=== PATIENT | male | born 1960 | race Caucasian/White ===

== ENCOUNTER 2018-06-22 22:23 | Inpatient (IN) | payer BC, MEDICAID ==
[2018-06-22] MEDS ORDERED: SODIUM CHLORIDE 0.9% 1,000 ML IV STA (23:05)
[2018-06-22 23:40] LABS: HCT 49.3 % (39.0-53.0); HGB 16.7 gm/dL (13.0-17.5); MCH 31.4 pg (25.0-35.0); MCHC 33.9 g/dL (31.0-37.0); MCV 92.6 fL (80.0-100.0); Mean Platelet Volume 8.3; RBC 5.32 m/uL (4.30-5.90); WBC 15.1 k/uL (3.8-10.6)
[2018-06-22 23:52] LABS: ALT 186 U/L (21-72); AST 158 U/L (17-59); Albumin 4.5 g/dL (3.5-5.0); Alkaline Phosphatase 71 U/L (38-126); Amylase 47 U/L (30-110); Anion Gap 12 mmol/L; Blood Urea Nitrogen 18 mg/dL (9-20); C Reactive Protein 21.1 mg/L (<10.0); Calcium 9.2 mg/dL (8.4-10.2); Carbon Dioxide 18 mmol/L (22-30); Chloride 109 mmol/L (98-107); Glucose 103 mg/dL (74-99); Lipase 68 U/L (23-300); Potassium 4.6 mmol/L (3.5-5.1); Sodium 139 mmol/L (137-145); Total Bilirubin 0.8 mg/dL (0.2-1.3); Total Protein 6.6 g/dL (6.3-8.2)
[2018-06-23 00:16] LABS: Appearance,Urine Clear (Clear); Bacteria,Urine Rare /hpf; Bilirubin,Urine Negative (Negative); Blood,Urine Small (Negative); Color,Urine Yellow; Glucose,Urine (UA) Negative (Negative); Ketones,Urine Negative (Negative); Leukocyte Esterase,Urine Negative (Negative); Mucus,Urine Few /hpf; Nitrite,Urine Negative (Negative); Protein,Urine Trace (Negative); RBC,Urine 5 /hpf (0-5); Specific Gravity,Urine 1.029 (1.001-1.035); Squamous Epithelial Cell,Urine <1 /hpf (0-4); Urobilinogen,Urine <2.0 mg/dL (<2.0); WBC,Urine 2 /hpf (0-5)
[2018-06-23 00:30] LABS: Band Neutrophils % 13 %; Lymphocytes # (M) 10.57 k/uL (1.0-4.8); Monocytes # (M) 0.15 k/uL (0-1.0); Neutrophils % (M) 16 %; Nucleated Red Blood Cells 0 /100 WBC (0-0); Total Cells Counted 200
[2018-06-23 00:31] LABS: Platelet Count 80 k/uL (150-450)
--- NOTE | 2018-06-23 00:46 | CT ---
EXAMINATION TYPE: CT abdomen pelvis w con DATE OF EXAM: 06/23/2018 COMPARISON: 07/10/2010 HISTORY: pain CT DLP: 1666.90 mGycm Automated exposure control for dose reduction was used. TECHNIQUE: Helical acquisition of images was performed from the lung bases through the pelvis. CONTRAST: Performed without Oral Contrast and with IV Contrast, patient injected with 100 mL of Isovue 300. FINDINGS: Lung bases are clear. There is no pleural effusion. Heart size is normal. Spleen is large and measures 13 cm. Liver shows no focal defect. Pancreas appears normal. Gallbladder is contracted. Bile ducts are not dilated. There is no adrenal mass. There are bilateral renal parapelvic cysts. Ureters are not dilated. There is no hydronephrosis. There is no retroperitoneal adenopathy. There is no ascites. Bladder distends s moothly. There is no free fluid in the pelvis. There is no evidence of a thickened appendix. Appendix appears small and normal. I see no intestinal wall thickening. There are no dilated loops. There is an 8 mm calculus in the lateral left kidney. I see no bony destructive process. Lumbar spine is intac t. IMPRESSION: NONOBSTRUCTING LEFT RENAL CALCULUS. LARGE RENAL PARAPELVIC CYSTS. NORMAL APPENDIX. MILD SPLENOMEGALY. THERE IS OVERALL NO ADVERSE CHANGE COMPARED TO OLD CT SCAN.
[2018-06-23] MEDS ORDERED: cefTRIAXone IN SWFI 1,000 MG/10 ML SYRINGE IVP STA (01:18)
[2018-06-23] MEDS ORDERED: ONDANSETRON 4 MG/2 ML VIAL IVP STA (01:52)
[2018-06-23] MEDS ORDERED: MORPHINE SULFATE 4 MG/ML SYRINGE IVP STA (01:53)
[2018-06-23] MEDS ORDERED: VANCOMYCIN IV PER PHARMACY 1 EACH MISC MISCELLANE PRN (01:56)
[2018-06-23] MEDS ORDERED: ACYCLOVIR SODIUM 1,000 MG in SODIUM CHLORIDE 0.9% 250 ML IV ONE (02:00)
[2018-06-23] MEDS ORDERED: NALOXONE 0.4 MG/ML 1 ML VIAL IV PRN (02:01)
[2018-06-23] MEDS ORDERED: MORPHINE SULFATE 4 MG/ML SYRINGE IV PRN (02:01)
[2018-06-23] MEDS ORDERED: ONDANSETRON 4 MG/2 ML VIAL IVP PRN (02:01)
--- NOTE | 2018-06-23 02:05 | ED ---
General Adult HPI - General Source: patient, RN notes reviewed Mode of arrival: wheelchair Limitations: no limitations <Marcelino Walker - Last Filed: 06/23/18 02:31> <Hal Corley - Last Filed: 06/23/18 06:22> - General Chief complaint: Abdominal Pain Stated complaint: fever/abdominal pain/skin breakout Time Seen by Provider: 06/22/18 22:53 - History of Present Illness Initial comments: 57-year-old male presents to the emergency department for a chief complaint of rash 3 days. Patient states he noticed the rash occurring on Saturday on his scalp. Patient states it is slightly painful. Patient states he was seen at a clinic the next day when it also appeared to go on his face. At that time he was given an IM injection of steroids. Patient states that today he went to another clinic because the rash spread to his chest. At that clinic he was given valacyclovir which she has been taking. Patient has had 2 doses of 1 g. Patient states his had shingles about 3 weeks ago. Patient denies ever having chickenpox. Patient admits to pain in the vesicles on the scalp but denies pain on the chest. Patient denies pruritus of the lesions. Patient states he did have a temperature today up to 101. Patient does have a history of CLL. Patient was diagnosed in 2006. Patient has received any treatment for this and is being monitored. Patient also admits to epigastric abdominal pain. Patient states the pain is intermittent and comes and goes. Patient denies nausea or vomiting. Patient states bowel movements have been normal.No surgical history the patient. Patient has no other complaints at this time including shortness of breath, chest pain, abdominal pain, nausea or vomiting, headache, or visual changes. (Marcelino Walker) - Related Data Home Medications Medication Instructions Recorded Confirmed Hydrocortisone Cream 1 applic TOPICAL BID 06/22/18 06/23/18 [Hydrocortisone 2.5% Cream] Lisinopril [Zestril] 5 mg PO DAILY 06/22/18 06/23/18 methylPREDNISolone Dose Pack 4 mg PO DIRECTED 06/22/18 06/23/18 [Medrol Dose Pack] valACYclovir HCL [Valacyclovir] 1,000 mg PO Q8HR 06/22/18 06/23/18 Allergies Allergy/AdvReac Type Severity Reaction Status Date / Time Sulfa (Sulfonamide Allergy Rash/Hives Verified 06/22/18 22:44 Antibiotics) acetaminophen [From Tylenol] AdvReac Nausea & Verified 06/22/18 22:44 Vomiting Review of Systems ROS Other: All systems not noted in ROS Statement are negative. <Marcelino Walker P - Last Filed: 06/23/18 02:31> ROS Other: All systems not noted in ROS Statement are negative. <WhitannaleeHal jean - Last Filed: 06/23/18 06:22> ROS Statement: Those systems with pertinent positive or pertinent negative responses have been documented in the HPI. Past Medical History Past Medical History: Hypertension Additional Past Medical History / Comment(s): Chronic lymphocytic leukemia History of Any Multi-Drug Resistant Organisms: None Reported Past Surgical History: No Surgical Hx Reported Past Psychological History: No Psychological Hx Reported Smoking Status: Never smoker Past Alcohol Use History: Occasional Past Drug Use History: None Reported <Marcelino Walker P - Last Filed: 06/23/18 02:31> General Exam Limitations: no limitations General appearance: alert, in no apparent distress Head exam: Present: atraumatic, normocephalic, normal inspection Eye exam: Present: normal appearance. Absent: scleral icterus, conjunctival injection ENT exam: Present: normal exam, normal oropharynx, mucous membranes moist, TM's normal bilaterally, normal external ear exam Neck exam: Present: normal inspection, full ROM. Absent: tenderness, meningismus, lymphadenopathy Respiratory exam: Present: normal lung sounds bilaterally. Absent: respiratory distress, wheezes, rales, rhonchi, stridor Cardiovascular Exam: Present: regular rate, normal rhythm, normal heart sounds. Absent: systolic murmur, diastolic murmur, rubs, gallop, clicks GI/Abdominal exam: Present: soft, tenderness (Tenderness over the epigastric area. No right upper quadrant or left upper quadrant tenderness. No lower abdominal tenderness.), normal bowel sounds, other (Negative Mcintyre sign. Negative obturator and psoas signs). Absent: distended, guarding, rebound, rigid Extremities exam: Present: full ROM Neurological exam: Present: alert, oriented X3, CN II-XII intact Psychiatric exam: Present: normal affect, normal mood Skin exam: Present: rash (Patient has a erythematous vesicular rash which is noted to be more prominent on scalp. Scalp is slightly edematous. Rash is also noted on face. Rash is also noted on chest although lesions are more spaced out here when compared to scalp. possible infection of multiple vesicles noted on the scalp. ) <Marcelino Walker P - Last Filed: 06/23/18 02:31> Vital Signs 06/22/18 06/23/18 06/23/18 22:37 00:41 02:05 Temperature 98.3 F 98.5 F Pulse Rate 63 89 49 L Respiratory 22 18 18 Rate Blood Pressure 148/105 147/89 176/86 O2 Sat by Pulse 98 98 100 Oximetry 06/23/18 06/23/18 03:11 03:39 Temperature 98.6 F 97.5 F L Pulse Rate 52 L 63 Respiratory 18 18 Rate Blood Pressure 155/75 153/72 O2 Sat by Pulse 97 99 Oximetry EKG Findings - EKG Comments: EKG Findings:: EKG shows a sinus bradycardia with a ventricular rate of 57, ID interval 150, QRS duration 98, no evidence of ST elevation or depression. No previous EKG for comparison. <Marcelino Walker P - Last Filed: 06/23/18 02:31> Medical Decision Making - Lab Data Result diagrams: 06/22/18 23:21 06/22/18 23:21 <Marcelino Walker - Last Filed: 06/23/18 02:31> - Lab Data Result diagrams: 06/22/18 23:21 06/22/18 23:21 <Hal Corley - Last Filed: 06/23/18 06:22> - Medical Decision Making 57-year-old male presents to the emergency department for a chief complaint of rash 2 days. Patient was seen at 2 different urgent cares and given steroids as well as Valtrex. Patient has had 2 doses of Valtrex. Patient has a history of CLL and his recently had shingles. On exam patient has erythematous ossicles noted most prominently on the scalp. Lesions have also spread to face as well as chest. Vesicles are intact, no drainage from vesicles. No crusting vesicles noted. There is possible signs of overlying infection of multiple vesicles on the scalp including purulent drainage. Patient may have a disseminated herpes zoster as he has never had chickenpox and his was just recently diagnosed as zoster. Patient is also immunocompromised from CLL. Patient does have abdominal pain as well. Pain was greatly improved in the emergency department and patient refused pain medications on presentation. He does have epigastric tenderness. CBC shows a white count of 15. Blood cultures were obtained. Platelet count 80 and lymphocytes 10.57. CMP did show elevated transaminases. CRP 21.1 CT showed left renal calculus with large renal parapelvic cysts. Mild splenomegaly noted. Overall no adverse change compared to old computed tomography scan. Patient will be admitted to the hospital and started on IV Rocephin, Vanco, and acyclovir. ID will be consulted. (Marcelino Walker) Patient with rash which is spreading, initially began over his head has spread to chest and upper extremities. This is vesicular, his recently had episode of shingles. This patient has never had chickenpox for immunization. There is concern for disseminated herpes zoster. Patient admitted on IV antibiotics for secondary infection and IV antivirals. Infectious disease placed on consult. Patient placed in isolation. (Hal Corley) - Lab Data Lab Results 06/22/18 06/22/18 06/22/18 Range/Units 23:21 23:21 23:42 WBC 15.1 H (3.8-10.6) k/uL RBC 5.32 (4.30-5.90) m/uL Hgb 16.7 (13.0-17.5) gm/dL Hct 49.3 (39.0-53.0) % MCV 92.6 (80.0-100.0) fL MCH 31.4 (25.0-35.0) pg MCHC 33.9 (31.0-37.0) g/dL RDW 14.0 (11.5-15.5) % Plt Count 80 L (150-450) k/uL Neutrophils % (Manual) 16 % Band Neutrophils % 13 % Lymphocytes % (Manual) 70 % Monocytes % (Manual) 1 % Neutrophils # (Manual) 4.30 (1.3-7.7) k/uL Lymphocytes # (Manual) 10.57 H (1.0-4.8) k/uL Monocytes # (Manual) 0.15 (0-1.0) k/uL Nucleated RBCs 0 (0-0) /100 WBC Differential Comment Manual Slide Review Performed Sodium 139 (137-145) mmol/L Potassium 4.6 (3.5-5.1) mmol/L Chloride 109 H (98-107) mmol/L Carbon Dioxide 18 L (22-30) mmol/L Anion Gap 12 mmol/L BUN 18 (9-20) mg/dL Creatinine 0.60 L (0.66-1.25) mg/dL Est GFR (CKD-EPI)AfAm >90 (>60 ml/min/1.73 sqM) Est GFR (CKD-EPI)NonAf >90 (>60 ml/min/1.73 sqM) Glucose 103 H (74-99) mg/dL Calcium 9.2 (8.4-10.2) mg/dL Total Bilirubin 0.8 (0.2-1.3) mg/dL AST 158 H (17-59) U/L ALT 186 H (21-72) U/L Alkaline Phosphatase 71 (38-126) U/L C-Reactive Protein 21.1 H (<10.0) mg/L Total Protein 6.6 (6.3-8.2) g/dL Albumin 4.5 (3.5-5.0) g/dL Amylase 47 (30-110) U/L Lipase 68 (23-300) U/L Urine Color Yellow Urine Appearance Clear (Clear) Urine pH 5.0 (5.0-8.0) Ur Specific [place] 1.029 (1.001-1.035) Urine Protein Trace H (Negative) Urine Glucose (UA) Negative (Negative) Urine Ketones Negative (Negative) Urine Blood Small H (Negative) Urine Nitrite Negative (Negative) Urine Bilirubin Negative (Negative) Urine Urobilinogen <2.0 (<2.0) mg/dL Ur Leukocyte Esterase Negative (Negative) Urine RBC 5 (0-5) /hpf Urine WBC 2 (0-5) /hpf Ur Squamous Epith Cells <1 (0-4) /hpf Urine Bacteria Rare H (None) /hpf Urine Mucus Few H (None) /hpf Disposition Time of Disposition: 02:05 <Marcelino Walker P - Last Filed: 06/23/18 02:31> <Hal Corley - Last Filed: 06/23/18 06:22> Clinical Impression: Disseminated herpes zoster, History of chronic lymphocytic leukemia, Abdominal pain Disposition: ADMITTED IP TO THIS HOSP Condition: Good
[2018-06-23] MEDS ORDERED: VANCOMYCIN 1,750 MG in SODIUM CHLORIDE 0.9% 500 ML IVPB ONE (03:00)
[2018-06-23] MEDS: SODIUM CHLORIDE 0.9% 1,000 ML IV SCH ×2 (05:05→14:11)
[2018-06-23] MEDS ORDERED: IBUPROFEN 400 MG TAB PO PRN (09:25)
[2018-06-23] MEDS: ACYCLOVIR SODIUM 1,000 MG in SODIUM CHLORIDE 0.9% 250 ML IVPB SCH ×2 (09:26→16:40)
[2018-06-23] MEDS: LISINOPRIL 5 MG TAB PO SCH (09:26)
[2018-06-23] MEDS: ACETAMINOPHEN TAB 325 MG TAB PO PRN ×3 (09:54→22:48)
--- NOTE | 2018-06-23 10:31 | P.CONS ---
History of Present Illness - Reason for Consult Consult date: 06/23/18 Vesicular rash, possible disseminated shingles - History of Present Illness This is a 57-year-old male patient who has a significant past history of CLL currently without any treatment and being monitored. Patient gives history that a month ago his had shingles and is completely healed and all the vesicles scabbed and healed over. She was treated with Valtrex. He noticed on Saturday that he was feeling punky, his eyes hurt, throat scratchy. When he showered he noticed he had 2 small bumps on the top of the scalp. He went to work for the day and when he got home seen the bumps were worse with more bumps and now they were bubbles. He went to the clinic and was seen by nurse practitioner in's by that time it started to spread on his scalp. He was given an IM steroid injection and started on Medrol Dosepak and hydrocortisone cream. He ended up going shopping and then went home. On Saturday the rash had spread to his forehead and into his face and by Saturday it was down into his neck and started to go into his chest and back. He went to the clinic in [place] and had blood work done and culture was obtained from one of the draining vesicles on his scalp. He was sent home with Valtrex but he developed significant epigastric pain that was worse every time he ate or drank something. He states he has been taking aspirin 650 mg every 4-6 hours with either milk or food. He states this pain was a #7 and brought him to tears. This time he was also having fever and chills and sweats during the night that soaked sheets. Because of the sweats he has not been able to sleep. On Saturday he was eating okay but by Saturday he had decreased appetite. He came in to [facility] emergency center for evaluation. He was given morphine in the ER which he states he almost passed out and felt very woozy from it. He was given liter of IV fluids and an EKG was done that showed a normal sinus rhythm without acute ST changes. CAT scan of the abdomen and pelvis with contrast revealed nonobstructive left renal calculus, large renal parapelvic cyst. Normal appendix. Mild splenomegaly. He has had a temperature maximum 101.4, white count of 15.1, platelet count 80, AST 158 and ALT 186. Alkaline phosphatase 71. Urinalysis was negative for infection but there was small amount of blood. Renal function was BUN 18 and creatinine 0.6. Patient was started in the ER on acyclovir, Rocephin and vancomycin and admitted to the [facility] floor and continued on the same. Now the rash is also spread to his entire chest abdomen active but ox and a few lesions on his arms and right foot. He is complaining of pain in his mouth but no lesions are noted. Patient has never had chickenpox or the vaccine. Review of Systems All systems: negative Constitutional: Reports anorexia, Reports chills, Reports fatigue, Reports fever , Reports malaise, Reports poor appetite, Reports sweats, Denies weight loss Eyes: denies blurred vision, denies pain Ears, nose, mouth and throat: Reports dental pain, Reports mouth pain, Reports sore throat, Denies dysphagia, Denies headache, Denies hoarseness, Denies vertigo Cardiovascular: Denies chest pain, Denies decreased exercise tolerance, Denies dyspnea on exertion, Denies leg edema, Denies lightheadedness, Denies shortness of breath, Denies syncope Respiratory: Denies cough, Denies cough with sputum, Denies dyspnea, Denies excessive sputum, Denies hemoptysis, Denies home oxygen, Denies wheezing Gastrointestinal: Reports loss of appetite, Denies abdominal pain, Denies diarrhea, Denies nausea, Denies vomiting Genitourinary: Denies dysuria, Denies urinary frequency Musculoskeletal: Denies myalgias Integumentary: Reports rash, Denies pruritus Neurological: Denies numbness, Denies weakness Psychiatric: Denies anxiety, Denies depression Endocrine: Denies fatigue, Denies weight change Past Medical History Past Medical History: Hypertension Additional Past Medical History / Comment(s): Chronic lymphocytic leukemia History of Any Multi-Drug Resistant Organisms: None Reported Past Surgical History: No Surgical Hx Reported Past Psychological History: No Psychological Hx Reported Smoking Status: Never smoker Past Alcohol Use History: Occasional Additional Past Alcohol Use History / Comment(s): She is a nonsmoker, no marijuana or illicit drug use. No alcohol abuse. Patient lives at home with his . He works in a warehouse. He denies any recent travel other than [place]. There are no animal exposures. No service. Past Drug Use History: None Reported Medications and Allergies Home Medications Medication Instructions Recorded Confirmed Type Hydrocortisone Cream 1 applic TOPICAL BID 06/22/18 06/23/18 History [Hydrocortisone 2.5% Cream] Lisinopril [Zestril] 5 mg PO DAILY 06/22/18 06/23/18 History methylPREDNISolone Dose Pack See Taper PO DIRECTED 06/22/18 06/23/18 History [Medrol Dose Pack] valACYclovir HCL [Valacyclovir] 1,000 mg PO Q8HR 06/22/18 06/23/18 History Allergies Allergy/AdvReac Type Severity Reaction Status Date / Time Sulfa (Sulfonamide Allergy Rash/Hives Verified 06/23/18 08:59 Antibiotics) acetaminophen [From Tylenol] AdvReac Nausea & Verified 06/23/18 08:59 Vomiting Physical Exam Vitals: Vital Signs Temp Pulse Pulse Resp BP BP Pulse Ox 06/23/18 07:00 101.4 F H 65 24 149/56 98 06/23/18 04:09 99.1 F 69 18 159/77 95 06/23/18 03:39 97.5 F L 63 18 153/72 99 06/23/18 03:11 98.6 F 52 L 18 155/75 97 06/23/18 02:05 98.5 F 49 L 18 176/86 100 06/23/18 00:41 89 18 147/89 98 06/22/18 22:37 98.3 F 63 22 148/105 98 Intake and Output 06/22/18 06/23/18 06/23/18 22:59 06:59 14:59 Other: Weight 100.698 kg 100.4 kg Gen: This is a 57-year-old male. He is sitting up in bed and appears to be comfortable. He does not appear to be in any distress. HEENT: Head is atraumatic, normocephalic. Pupils equal, round. Sclerae is anicteric. Conjunctiva pink. Mucous members of the mouth are moist. No lesions are noted. NECK: Supple. No JVD. No lymphadenopathy. No thyromegaly. LUNGS: Clear to auscultation. No wheezes or rhonchi. No intercostal retractions. HEART: Regular rate and rhythm. No murmur. ABDOMEN: Soft. Bowel sounds are present. No masses. No tenderness. EXTREMITIES: No pedal edema. No calf tenderness. Dorsalis pedis +2 bilaterally. SKIN: There is a dense vesicular rash with open lesions and crusting most dense to the scalp and forehead area but extends into the face, neck, chest, back abdomen. There are few lesions on both arms and on the right foot. NEUROLOGICAL: Patient is awake, alert and oriented x3. Cranial nerves 2 through 12 are grossly intact. Results Results: Laboratory Results WBC 15.1 k/uL (3.8-10.6) H 06/22/18 23:21 RBC 5.32 m/uL (4.30-5.90) 06/22/18 23:21 Hgb 16.7 gm/dL (13.0-17.5) 06/22/18 23:21 Hct 49.3 % (39.0-53.0) 06/22/18 23:21 MCV 92.6 fL (80.0-100.0) 06/22/18 23:21 MCH 31.4 pg (25.0-35.0) 06/22/18 23:21 MCHC 33.9 g/dL (31.0-37.0) 06/22/18 23:21 RDW 14.0 % (11.5-15.5) 06/22/18 23:21 Plt Count 80 k/uL (150-450) L 06/22/18 23:21 Neutrophils % (Manual) 16 % 06/22/18 23:21 Band Neutrophils % 13 % 06/22/18 23:21 Lymphocytes % (Manual) 70 % 06/22/18 23:21 Monocytes % (Manual) 1 % 06/22/18 23:21 Neutrophils # (Manual) 4.30 k/uL (1.3-7.7) 06/22/18 23:21 Lymphocytes # (Manual) 10.57 k/uL (1.0-4.8) H 06/22/18 23:21 Monocytes # (Manual) 0.15 k/uL (0-1.0) 06/22/18 23:21 Nucleated RBCs 0 /100 WBC (0-0) 06/22/18 23:21 Differential Comment 06/22/18 23:21 Manual Slide Review Performed 06/22/18 23:21 Sodium 139 mmol/L (137-145) 06/22/18 23:21 Potassium 4.6 mmol/L (3.5-5.1) 06/22/18 23:21 Chloride 109 mmol/L (98-107) H 06/22/18 23:21 Carbon Dioxide 18 mmol/L (22-30) L 06/22/18 23:21 Anion Gap 12 mmol/L 06/22/18 23:21 BUN 18 mg/dL (9-20) 06/22/18 23:21 Creatinine 0.60 mg/dL (0.66-1.25) L 06/22/18 23:21 Est GFR (CKD-EPI)AfAm >90 (>60 ml/min/1.73 sqM) 06/22/18 23:21 Est GFR (CKD-EPI)NonAf >90 (>60 ml/min/1.73 sqM) 06/22/18 23:21 Glucose 103 mg/dL (74-99) H 06/22/18 23:21 Calcium 9.2 mg/dL (8.4-10.2) 06/22/18 23:21 Total Bilirubin 0.8 mg/dL (0.2-1.3) 06/22/18 23:21 AST 158 U/L (17-59) H 06/22/18 23:21 ALT 186 U/L (21-72) H 06/22/18 23:21 Alkaline Phosphatase 71 U/L (38-126) 06/22/18 23:21 C-Reactive Protein 21.1 mg/L (<10.0) H 06/22/18 23:21 Total Protein 6.6 g/dL (6.3-8.2) 06/22/18 23:21 Albumin 4.5 g/dL (3.5-5.0) 06/22/18 23:21 Amylase 47 U/L (30-110) 06/22/18 23:21 Lipase 68 U/L (23-300) 06/22/18 23:21 Urine Color Yellow 06/22/18:42 Urine Appearance Clear (Clear) 06/22/18 23:42 Urine pH 5.0 (5.0-8.0) 06/22/18 23:42 Ur Specific [place] 1.029 (1.001-1.035) 06/22/18 23:42 Urine Protein Trace (Negative) H 06/22/18 23:42 Urine Glucose (UA) Negative (Negative) 06/22/18 23:42 Urine Ketones Negative (Negative) 06/22/18 23:42 Urine Blood Small (Negative) H 06/22/18 23:42 Urine Nitrite Negative (Negative) 06/22/18 23:42 Urine Bilirubin Negative (Negative) 06/22/18 23:42 Urine Urobilinogen <2.0 mg/dL (<2.0) 06/22/18 23:42 Ur Leukocyte Esterase Negative (Negative) 06/22/18 23:42 Urine RBC 5 /hpf (0-5) 06/22/18 23:42 Urine WBC 2 /hpf (0-5) 06/22/18 23:42 Ur Squamous Epith Cells <1 /hpf (0-4) 06/22/18 23:42 Urine Bacteria Rare /hpf (None) H 06/22/18 23:42 Urine Mucus Few /hpf (None) H 06/22/18 23:42 CBC & Chem 7: 06/23/18 13:26 06/23/18 13:26 Labs: Abnormal Lab Results - Last 24 Hours (Table) 06/22/18 06/22/18 06/22/18 Range/Units 23:21 23:21 23:42 WBC 15.1 H (3.8-10.6) k/uL Plt Count 80 L (150-450) k/uL Lymphocytes # (Manual) 10.57 H (1.0-4.8) k/uL Chloride 109 H (98-107) mmol/L Carbon Dioxide 18 L (22-30) mmol/L Creatinine 0.60 L (0.66-1.25) mg/dL Glucose 103 H (74-99) mg/dL AST 158 H (17-59) U/L ALT 186 H (21-72) U/L C-Reactive Protein 21.1 H (<10.0) mg/L Urine Protein Trace H (Negative) Urine Blood Small H (Negative) Urine Bacteria Rare H (None) /hpf Urine Mucus Few H (None) /hpf Assessment and Plan Plan: This is a 57-year-old male patient who presents to hospital with sepsis secondary to varus cell zoster virus in a patient with history of CLL. He is currently on acyclovir, Rocephin and vancomycin. Culture will be obtained from one of the vesicles on his scalp. There is still a zoster IgG antibody ordered. Due to elevated liver function tests and right-sided abdominal pain, liver ultrasound and acute hepatitis panel ordered. Blood cultures status received. We will obtain culture report from the [facility] clinic. Continue supportive care. Further recommendations as patient progresses. The above dictated assessment and findings were discussed with Dr. Espino. The impression and plan of care have been directed as dictated. Melody Wilkinson nurse practitioner acting as scribe for Dr. Espino.
[2018-06-23 13:40] LABS: HCT 45.2 % (39.0-53.0); HGB 14.5 gm/dL (13.0-17.5); MCH 30.5 pg (25.0-35.0); MCHC 32.1 g/dL (31.0-37.0); MCV 94.9 fL (80.0-100.0); Mean Platelet Volume 7.7; RBC 4.76 m/uL (4.30-5.90); RDW 14.3 % (11.5-15.5); WBC 12.7 k/uL (3.8-10.6)
[2018-06-23 13:42] LABS: Platelet Count 63 k/uL (150-450)
[2018-06-23 13:49] LABS: ALT 220 U/L (21-72); AST 210 U/L (17-59); Albumin 3.4 g/dL (3.5-5.0); Alkaline Phosphatase 56 U/L (38-126); Anion Gap 8 mmol/L; Blood Urea Nitrogen 14 mg/dL (9-20); Calcium 7.9 mg/dL (8.4-10.2); Carbon Dioxide 23 mmol/L (22-30); Chloride 106 mmol/L (98-107); Glucose 106 mg/dL (74-99); Potassium 4.2 mmol/L (3.5-5.1); Sodium 137 mmol/L (137-145); Total Bilirubin 0.9 mg/dL (0.2-1.3); Total Protein 5.6 g/dL (6.3-8.2)
[2018-06-23 14:07] LABS: Lymphocytes # (M) 9.27 k/uL (1.0-4.8); Neutrophils # (M) 3.43 k/uL (1.3-7.7); Neutrophils % (M) 27 %
[2018-06-23] MEDS: ENOXAPARIN 40 MG/0.4 ML SYRINGE SQ SCH (14:09)
[2018-06-23 14:11] LABS: Nucleated Red Blood Cells 0 /100 WBC (0-0); Total Cells Counted 100
--- NOTE | 2018-06-23 15:57 | HP ---
HISTORY AND PHYSICAL DATE OF SERVICE: 06/23/18 PRESENT COMPLAINT: Painful rash. HISTORY OF PRESENTING COMPLAINT: This is a very pleasant 57-year-old patient of Dr. Gasper Hassan. Chronic stable medical conditions include CLL and hypertension. The patient does follow up with Dr. Cruz. Because of CLL the patient did not get a herpes zoster vaccination. The patient's has had herpes zoster, recovering for 3 weeks. On Saturday that is 3 days ago patient started feeling unwell, had a bit of a scratchy throat, just felt rundown, went to work, did notice some bumps on his head. The following day, started noticing a rash on his forehead, was little bit painful and slowly progressed to get worse. He went down to the Urgent Care at the [facility] and was seen by the mid-level practitioner there. He was given some steroids, antibiotics and then told to go home. The patient progressed to get a bit worse and then rash started coming down on his arms and body. The patient did go down to the [facility] where a biopsy was taken of the lesion and then he was told to go home. The patient started then having fevers. The rash became worse, itchy. The patient took an aspirin then developed quite severe abdominal pain. Some nausea, no vomiting. The patient felt he may have had a low-grade fever and this morning actually had a fever of 101.4, and patient did present to the ER here. The patient was then felt to have disseminated herpes zoster and was admitted for the same. The patient is started on IV acyclovir. Lesions are coming on in his torso. REVIEW OF SYSTEMS: CONSTITUTIONAL: Fever, weak, tired. HEENT: As above. RESPIRATORY: None. CARDIOVASCULAR: None. GASTROINTESTINAL: As above. GENITOURINARY: None. MUSCULOSKELETAL: None. DERMATOLOGICAL: As above. LYMPHATICS: None. PSYCHIATRY: None. NEUROLOGICAL: None. PAST MEDICAL HISTORY: CLL, hypertension. PAST SURGICAL HISTORY: None. SOCIAL HISTORY: Does not smoke. Alcohol occasionally about 2 beers a week. No recreational drugs. The patient is employed. . Patient works at the [employer]. FAMILY HISTORY: Reviewed and noncontributory to presentation. HOME MEDICATIONS: Valacyclovir 1000 mg p.o. q.8, Medrol Dosepak, Zestril 5 mg a day, hydrocortisone topical 2.5 b.i.d. ALLERGIES: SULFA, TYLENOL. EXAMINATION: T-max 101.4, pulse 65, resting 24, blood pressure 149/56, pulse ox 98 percent on room air. GENERAL APPEARANCE: Well built, BMI 34.7, sitting up, a bit anxious-appearing. EYES: Pupils equal. Conjunctivae normal. HEENT: Nose and ear normal. See more in dermatological. NECK: JVD not raised. Mass not palpable. RESPIRATORY: Effort, lungs are clear. CARDIOVASCULAR: 1st and 2nd sounds normal. No edema. ABDOMEN: Soft, minimal epigastric tenderness. Liver and spleen not palpable. LYMPHATIC: No lymph nodes palpable in neck or axillae. PSYCHIATRY: Alert and oriented x3. Mood and affect normal. NEUROLOGICAL: Pupils equal. Cranial nerves grossly intact. Power and sensation grossly intact. DERMATOLOGICAL: The patient has got this diffuse rash on the scalp and face and also the patient has got these pustules with a central indentation and somewhat scattered on the torso and upper extremity. INVESTIGATION: White count 15.1, hemoglobin 16.7, platelet count 80. Lymphocytes 10.5, potassium 4.7, bicarb 18, BUN 18, creatinine 0.6, AST 158, ALT 186. C-reactive protein 21.1. CT scan abdomen and pelvis shows nonobstructive left renal calculus, large renal parapelvic cyst. ASSESSMENT: 1. This is a patient who has been coming now with systemic symptoms of low-grade fever, rash, which is some of the lesions are umbilicated. they are not much tender, though rather itchy with a central indentation. High in the differential of course is varicella zoster. Smear was taken at [facility] and will try to get the results of the same. The patient has been put on IV acyclovir. Other disseminated viral infection definitely remains in the differential. 2. Acute hepatitis could be from underlying infection. 3. Essential hypertension. 4. Chronic lymphocytic leukemia. 5. Fever itself could be from disseminated infection with secondary infection possible. PLAN: Patient is empirically on ceftriaxone, vancomycin, IV acyclovir. Consultation to consultation to Dermatology and Infectious Disease was done. Care was discussed in detail with the patient. Questions were answered. We will also get Hematology input. Will repeat labs. The patient is in isolation currently. MMODL / IJN: [id number] /
[2018-06-23] MEDS: LACTATED RINGERS 1,000 ML IV SCH (16:40)
[2018-06-23] MEDS: SODIUM BICARBONATE TAB 650 MG TAB PO SCH ×2 (16:41→22:47)
[2018-06-23] MEDS: VANCOMYCIN 2,000 MG in SODIUM CHLORIDE 0.9% 500 ML IVPB SCH (16:45)
[2018-06-23 19:12] LABS: Hepatitis A Antibody IgM Non-Reactive (Non-Reactive); Hepatitis B Core IgM Non-Reactive (Non-Reactive)
[2018-06-23] MEDS ORDERED: CALAMINE/ZINC OXIDE LOTION 177 ML BTL TOPICAL PRN (19:39)
--- NOTE | 2018-06-23 20:36 | P.CON ---
Consult Note - . Consult date: 06/23/18 Assessment/Plan:: This is a 57-year-old male patient who has a significant past history of CLL currently without any treatment and being monitored. Patient gives history that a month ago his had shingles and is completely healed and all the vesicles scabbed and healed over. She was treated with Valtrex. He noticed on Saturday that he was feeling punky, his eyes hurt, throat scratchy. When he showered he noticed he had 2 small bumps on the top of the scalp. He went to work for the day and when he got home seen the bumps were worse with more bumps and now they were bubbles. He went to the clinic and was seen by nurse practitioner in's by that time it started to spread on his scalp. He was given an IM steroid injection and started on Medrol Dosepak and hydrocortisone cream. He ended up going shopping and then went home. On Saturday the rash had spread to his forehead and into his face and by Saturday it was down into his neck and started to go into his chest and back. He went to the clinic in [place] and had blood work done and culture was obtained from one of the draining vesicles on his scalp. He was sent home with Valtrex but he developed significant epigastric pain that was worse every time he ate or drank something. He states he has been taking aspirin 650 mg every 4-6 hours with either milk or food. He states this pain was a #7 and brought him to tears. This time he was also having fever and chills and sweats during the night that soaked sheets. Because of the sweats he has not been able to sleep. On Saturday he was eating okay but by Saturday he had decreased appetite. He came in to [facility] emergency center for evaluation. He was given morphine in the ER which he states he almost passed out and felt very woozy from it. He was given liter of IV fluids and an EKG was done that showed a normal sinus rhythm without acute ST changes. CAT scan of the abdomen and pelvis with contrast revealed nonobstructive left renal calculus, large renal parapelvic cyst. Normal appendix. Mild splenomegaly. He has had a temperature maximum 101.4, white count of 15.1, platelet count 80, AST 158 and ALT 186. Alkaline phosphatase 71. Urinalysis was negative for infection but there was small amount of blood. Renal function was BUN 18 and creatinine 0.6. Patient was started in the ER on acyclovir, Rocephin and vancomycin and admitted to the [facility] floor and continued on the same. Now the rash is also spread to his entire chest abdomen active but ox and a few lesions on his arms and right foot. He is complaining of pain in his mouth but no lesions are noted. Patient has never had chickenpox or the vaccine. Please see the consult note as dictated by CUSTOMER SUPPLY CHAIN ANALYST Michelle Melody Anniegina. 57-year-old male with a history of salol relates to the relatively short history of onset of the rash that started on his scalp and then spread to his forehead. 3 days it has become evident on his chest abdomen right foot back. Associated with high-grade fever of over 2 generalized malaise significant chills and sweats the required him to sleep on Towels because he was sweating so considerably. The patient then developed significant abdominal pain after taking aspirin as well as his Medrol Dosepak, and he had received a Depo-Medrol injection. The abdominal pain continued to worsen in this is actually why he sought care in the emergency center. Upon arrival he had high-grade fever and evidence of this extensive rash. There is immunocompromised status and the vesicular nature of the rash is in different phases. Highly consistent with acute varicella-zoster infection, chickenpox. Patient was placed in appropriate airborne precautions and admitted. Intravenous acyclovir is being utilized and maneuvers to control his pain and fever being utilized also. He was receiving some Tylenol and IV Toradol has now been added. Caladryl is added to see if this can help with his itchy rash. The patient is concerned about his who does need some help in the home setting. Apparently some sisters and friends will be helping while he is hospitalized. Outpatient testing of the lesion has been done and this result is pending at this point in time. Serological evaluation for varicella-zoster is also requested. Antimicrobial therapy with vancomycin utilize the short run concerns of potential secondary skin infection especially given his significant level of immunocompromised from his CLL. Rocephin was discontinued. Continue with maneuvers to improve his temperature is hydration and pain we will expect improvement over the next 72 hours. I agree with the assessment evaluation and plan as dictated by CUSTOMER SUPPLY CHAIN ANALYST MichelleMelody Jaja.
[2018-06-23] MEDS: KETOROLAC 30 MG/ML 1 ML VIAL IVP SCH (20:40)
[2018-06-23] MEDS: SUCRALFATE 1 GM TAB PO SCH (20:41)
[2018-06-23] MEDS: PANTOPRAZOLE 40 MG/10 ML VIAL IVP SCH (22:48)
[2018-06-23] MEDS: TRIAMCINOLONE ACET 0.1% OINTMENT 15 GM TUBE TOPICAL SCH (22:48)
[2018-06-23] MEDS ORDERED: cefTRIAXone IN SWFI 1,000 MG/10 ML SYRINGE IVP SCH (23:00)
[2018-06-24] MEDS: SODIUM CHLORIDE 0.9% 1,000 ML IV SCH ×3 (00:08→20:16)
[2018-06-24] MEDS: ACYCLOVIR SODIUM 1,000 MG in SODIUM CHLORIDE 0.9% 250 ML IVPB SCH ×3 (01:50→21:40)
[2018-06-24] MEDS: KETOROLAC 30 MG/ML 1 ML VIAL IVP SCH ×4 (01:53→21:40)
[2018-06-24] MEDS: LACTATED RINGERS 1,000 ML IV SCH ×3 (02:01→22:53)
[2018-06-24] MEDS: ACETAMINOPHEN TAB 325 MG TAB PO PRN ×3 (04:52→18:20)
[2018-06-24] MEDS: VANCOMYCIN 2,000 MG in SODIUM CHLORIDE 0.9% 500 ML IVPB SCH ×2 (07:53→18:20)
--- NOTE | 2018-06-24 08:11 | CONS ---
CONSULTATION DATE OF CONSULT: 06/23/2018 REASON FOR CONSULT: Severe rash. HPI: The patient is a 57-year-old male with past medical history of CLL for 11 years, who presents with a 4-day history of a spreading painful rash. The patient states that on Saturday, the rash started on the bilateral scalp with erythematous vesicles. Patient to go into Urgent Care who treated him with IM and p.o. steroids. The patient states the rash continued to spread through his face and then slowly to his back, chest, upper arms. Patient states the rash was becoming increasingly painful and that he went back to another clinic on Saturday who started him on valacyclovir. The patient states he took 2 doses of 1 gram before coming into the hospital for further evaluation because of the pain and fever with the rash. PAST MEDICAL HISTORY: Patient has a past medical history of hypertension and CLL. SURGICAL HISTORY: None. MEDICATIONS ON ADMISSION: See chart. ALLERGIES: Allergies to SULFA, reaction hives, ACETAMINOPHEN from TYLENOL, nausea and vomiting reaction. SOCIAL HISTORY: Admits to occasional alcohol use. Denies tobacco or illegal drug use. PHYSICAL EXAM: Vital signs show a temp of 98.5 degrees Fahrenheit, pulse of 49 beats per minute, respiratory rate of 18 breaths per minute, blood pressure is 176/86 mmHg, and O2 saturation is 100% on room air. GENERAL: The patient is in no apparent distress. He is alert and oriented x3. He is well nourished, well developed, cooperative, anxious or agitated. NEUROLOGICAL: Cranial nerves 2 to 12 are grossly intact. HEAD AND NECK: Head is normocephalic and atraumatic. Neck is supple. Trachea is midline. No JVD noted. LUNGS: Respirations are unlabored. EXTREMITIES: No obvious focal deficits noted, SKIN: Painful of vesicles on erythematous base on the parietal and occipital scalp, on the chest, bilateral arms, back and on right foot the patient has a mixture of vesicles on an erythematous base encrusted lesion. LABS: See chart. IMPRESSION: Disseminated herpes zoster versus bullous pemphigoid versus pemphigus vulgaris. PLAN: 1. Continue acyclovir IV 1000 mg q.8 hours IV until viral cultures taken on 06/23/2018 are back. 2. Start triamcinolone ointment twice daily to scalp, chest and upper and lower extremities to affected areas and once daily to face. 3. We will check BP 180 and 230 to further check for bullous pemphigoid and will check for desmoglein 1 and 3 to check for pemphigus vulgaris. Thank you for this consult. SIDRA / ANDREIA: [id number] /
[2018-06-24] MEDS: ENOXAPARIN 40 MG/0.4 ML SYRINGE SQ SCH (09:56)
[2018-06-24] MEDS: PANTOPRAZOLE 40 MG/10 ML VIAL IVP SCH ×2 (09:57→21:42)
[2018-06-24] MEDS: SODIUM BICARBONATE TAB 650 MG TAB PO SCH ×3 (09:57→21:41)
[2018-06-24] MEDS: SUCRALFATE 1 GM TAB PO SCH ×4 (09:57→21:42)
[2018-06-24] MEDS: LISINOPRIL 5 MG TAB PO SCH (09:57)
[2018-06-24] MEDS: TRIAMCINOLONE ACET 0.1% OINTMENT 15 GM TUBE TOPICAL SCH (12:52)
--- NOTE | 2018-06-24 14:23 | CONS ---
CONSULTATION DATE OF CONSULTATION: 06/24/2018. HISTORY: This is a 57-year-old white male with a history of CLL. Four days ago the patient states he noticed a small bumps appearing on his scalp. He also describes not feeling well that day. These bumps subsequently spread and he ultimately formed a rash on his forehead and face and also other places of his torso. The patient presented to the emergency room here at [facility] and was given IV antivirals and antibiotics. More recently, the patient states that he has increased swelling of his right upper lid, though denies any vision changes. He was diagnosed with systemic varicella zoster due to his immunocompromised state and is currently undergoing continued intravenous acyclovir. I was asked to evaluate and determine the presence of ocular globe involvement. EXAM: On penlight exam there was a vesicular rash on the forehead in the specially in the right periorbital region. The patient's right upper lid was swollen shut at the time of presentation. He was resting comfortably, however. The left upper lid likewise had some evidence of vesicular rash, however, not as prominent as on the right side. The conjunctivas were quiet bilaterally. Both corneas were clear with no evidence of dendritic lesions on either side. Anterior chambers were well formed. The iris was normal. The remainder the ophthalmic exam was otherwise unremarkable. Visual acuity measured 20/20 bilaterally. The pupils were equal, reactive to light. There was no afferent defect. Extraocular movements were full in all gaze positions. ASSESSMENT: Herpes zoster: I see no evidence of corneal or ocular globe involvement at this time. His lesions remain superficial and hopefully will be responding soon to the IV antiviral treatment. A return visit to my office is recommended in 1 week at which point we will determine whether any change in his corneal status has occurred. MMODL / IJN: [id number] /
--- NOTE | 2018-06-24 15:34 | P.CONS ---
History of Present Illness - Reason for Consult Consult date: 06/24/18 CLL Requesting physician: Raad Molina - Chief Complaint Rash, Shingles disseminated - History of Present Illness HPI : The patient was diagnosed with CLL in .He has been on watchful approach by steel turner Dr. Cruz. We also monitor him closely for his chronic thrombocytopenia. Dejuan presents to [facility] ED secondary to a progressive diffuse rash which has persisted. His WBC are 12.7 and platlet count 63 today. He has had increased subjective B symptoms versus infectious febrile symptoms with increased night sweats, fatigue. He stated he noted a small pustule on top of head a few weeks ago. The lesion continued to multiply and he was seen in urgent care and prescribed topical cremes and high dose steroids. While taking the prescribed medications the lesions continued to progress, more painful than itchy he states, and uncomfortable. He was seen by an outside office who diagnosed with "chicken pox" and advised him to be seen here at [facility]. The rash has progressed now that his right eye has become swollen as well. His Liver function is also increased on admission, and has not improved. AST = 210, ALT = 220 ?related to recent medications (Steroids)? Review of Systems A 14 point review of systems has been assessed and completed and all negative except HPI Past Medical History Past Medical History: Hypertension Additional Past Medical History / Comment(s): Chronic lymphocytic leukemia History of Any Multi-Drug Resistant Organisms: None Reported Past Surgical History: No Surgical Hx Reported Past Psychological History: No Psychological Hx Reported Smoking Status: Never smoker Past Alcohol Use History: Occasional Additional Past Alcohol Use History / Comment(s): She is a nonsmoker, no marijuana or illicit drug use. No alcohol abuse. Patient lives at home with his . He works in a warehouse. He denies any recent travel other than [place]. There are no animal exposures. No service. Past Drug Use History: None Reported Medications and Allergies Home Medications Medication Instructions Recorded Confirmed Type Hydrocortisone Cream 1 applic TOPICAL BID 06/22/18 06/23/18 History [Hydrocortisone 2.5% Cream] Lisinopril [Zestril] 5 mg PO DAILY 06/22/18 06/23/18 History methylPREDNISolone Dose Pack See Taper PO DIRECTED 06/22/18 06/23/18 History [Medrol Dose Pack] valACYclovir HCL [Valacyclovir] 1,000 mg PO Q8HR 06/22/18 06/23/18 History Allergies Allergy/AdvReac Type Severity Reaction Status Date / Time Sulfa (Sulfonamide Allergy Rash/Hives Verified 06/23/18 08:59 Antibiotics) acetaminophen [From Tylenol] AdvReac Nausea & Verified 06/23/18 08:59 Vomiting Physical Exam Vitals: Vital Signs Temp Pulse Resp BP Pulse Ox 06/24/18 09:00 101.4 F H 06/24/18 06:27 98.3 F 63 18 144/70 99 06/24/18 04:59 100.8 F H 06/24/18 01:15 99.7 F H 06/23/18 23:47 101.5 F H 75 20 126/73 97 06/23/18 21:50 100.9 F H 06/23/18 19:45 101.0 F H 06/23/18 16:00 18 Intake and Output 06/24/18 06/24/18 06/24/18 06:59 14:59 22:59 Other: # Voids 2 3 General - NAD, Alert and Oriented x3 Head - NC, NT Eyes - Erythema and Edema, right eye closed shut Neck - Supple, Trachea Midline Lungs CTA Bilateral, no uincreased effort Heart RRR, S1S2 Abdomen Softy, ND, NT Extremities = Mild Generalized edema with diffuse lesions present Skin - Dry, Scaley crusted and non crusted lesions present from head to bilateral arms, posterior and anterior thorax. Results CBC & Chem 7: 06/23/18 13:26 06/23/18 13:26 Labs: Microbiology - Last 24 Hours (Table) 06/23/18 23:21 Blood Culture Gram Stain - Preliminary Blood 06/23/18 10:15 Gram Stain - Preliminary Back Wound Culture - Preliminary 06/22/18 23:21 Blood Culture - Final Blood CT scan - abdomen: report reviewed CT scan - pelvis: report reviewed Assessment and Plan Plan: Assessment and Recommendations: 1. Chronic Lymphocytis Leukemia - Has been on Observation since 2006 - WBC appears to be maintained at his baseline between 10-15, Today 12.7 - I will check immunoglobulins and provide IGG if Resnable to assist i fighting any acute or active infection 2. Thrombocytopenia - Mildly below his baseline 90-110 - Today 63, worse from acute infection - Monitor closely and hold anticoagulation ifless than 50K 3. Disseminated Shingles affecting Right Eye - Per Infectious Disease - Continue on Acyclovir and precautions maintained. 4. Liver Transiminitis - ?Medications - Hep Panel Negative - CT scan failed to show underlying etiology - Recheck CBC and CMP in am - Check Coags
[2018-06-24 16:28] LABS: Prothrombin Time 10.2 sec (9.0-12.0)
[2018-06-24] MEDS ORDERED: diphenhydrAMINE 50 MG/ML 1 ML VIAL IVP PRN (17:59)
--- NOTE | 2018-06-24 22:26 | PN ---
PROGRESS NOTE DATE OF SERVICE: June 24, 2018. PRESENT COMPLAINT: Painful rash. INTERVAL HISTORY: This patient with known CLL persisted with disseminated herpes zoster infection seems to be colacing more with some breakdown over the scalp, lesions rather itching with some pain and swelling of the right eye. Seen by ophthalmology. Has been no corneal involvement. The patient remains on IV acyclovir. Tolerating some diet and there is some still present on the body, but it is more colaced on the scalp and the face. REVIEW OF SYSTEMS: Done for constitutional, cardiovascular, GI, pulmonary; relevant findings as above. CURRENT MEDICATIONS: Reviewed that include IV acyclovir and vancomycin, sodium bicarbonate. EXAMINATION: VITAL SIGNS: T-max 101.4, pulse 60, respiratory 18, blood pressure 130/79, pulse ox 99 percent on room air. GENERAL APPEARANCE: Sitting up. Rather uncomfortable. EYES: Right eye is more swollen and shut. HEENT multiple lesions in the scalp have colaced. Some breakdown and soggy appearance, more so scattered lesions in the torso. RESPIRATORY effort normal. LUNGS are clear. CARDIOVASCULAR: 1st and 2nd sounds normal. No edema. ABDOMEN: Soft, nontender. Liver and spleen not palpable. PSYCHIATRY: Alert and oriented x3. Mood and affect anxious-appearing. DERMATOLOGICAL: Diffuse rash, more so on the scalp and face, less on the torso and extremities. INVESTIGATIONS: INR is 1. The patient's AST and ALT was 210 and 220 yesterday. Hepatitis screen came back negative and varicella zoster virus IgG antibody less than 0.2. ASSESSMENT: 1. Disseminated herpes zoster virus in a patient who is immunosuppressed from underlying CLL. 2. Acute hepatitis from disseminated HSV. 3. Essential hypertension. 4. Chronic lymphocytic leukemia. 5. Left renal calculi, asymptomatic. 6. Pruritus from above. PLAN: IV Benadryl is added 50 mg q.6 and IV acyclovir and antibiotics to continue as per Dr. Espino. The patient was seen by PA from Dermatology. Care was discussed with the patient. Repeat labs in the morning. MMODL / IJN: [id number] /
--- NOTE | 2018-06-24 23:10 | P.PN ---
Subjective Progress Note Date: 06/24/18 This is a 57-year-old male patient who has a significant past history of CLL currently without any treatment and being monitored. Patient gives history that a month ago his had shingles and is completely healed and all the vesicles scabbed and healed over. She was treated with Valtrex. He noticed on Saturday that he was feeling punky, his eyes hurt, throat scratchy. When he showered he noticed he had 2 small bumps on the top of the scalp. He went to work for the day and when he got home seen the bumps were worse with more bumps and now they were bubbles. He went to the clinic and was seen by nurse practitioner in's by that time it started to spread on his scalp. He was given an IM steroid injection and started on Medrol Dosepak and hydrocortisone cream. He ended up going shopping and then went home. On Saturday the rash had spread to his forehead and into his face and by Saturday it was down into his neck and started to go into his chest and back. He went to the clinic in [place] and had blood work done and culture was obtained from one of the draining vesicles on his scalp. He was sent home with Valtrex but he developed significant epigastric pain that was worse every time he ate or drank something. He states he has been taking aspirin 650 mg every 4-6 hours with either milk or food. He states this pain was a #7 and brought him to tears. This time he was also having fever and chills and sweats during the night that soaked sheets. Because of the sweats he has not been able to sleep. On Saturday he was eating okay but by Saturday he had decreased appetite. He came in to [facility] emergency center for evaluation. He was given morphine in the ER which he states he almost passed out and felt very woozy from it. He was given liter of IV fluids and an EKG was done that showed a normal sinus rhythm without acute ST changes. CAT scan of the abdomen and pelvis with contrast revealed nonobstructive left renal calculus, large renal parapelvic cyst. Normal appendix. Mild splenomegaly. He has had a temperature maximum 101.4, white count of 15.1, platelet count 80, AST 158 and ALT 186. Alkaline phosphatase 71. Urinalysis was negative for infection but there was small amount of blood. Renal function was BUN 18 and creatinine 0.6. Patient was started in the ER on acyclovir, Rocephin and vancomycin and admitted to the [facility] floor and continued on the same. Now the rash is also spread to his entire chest abdomen active but ox and a few lesions on his arms and right foot. He is complaining of pain in his mouth but no lesions are noted. Patient has never had chickenpox or the vaccine. 06/24/2018 patient has worsened today. he has developed new lesions to his and periorbital edema and swelling Fortunately his vision is intact. He is somewhat miserable but no worse than yesterday He is eating, back and forth to the bathroom and is not in severe pain.he has been seen by dermatology. Objective - Vital Signs Vital signs: Vital Signs Temp 100.5 F H 06/24/18 20:28 Pulse 60 06/24/18 15:00 Resp 18 06/24/18 15:00 BP 134/79 06/24/18 15:00 Pulse Ox 99 06/24/18 15:00 Intake & Output 06/24/18 06/24/18 06/25/18 06:59 18:59 06:59 Other: Voiding Method Toilet Urinal # Voids 2 3 - Exam Gen: This is a 57-year-old male. He is sitting up in bed and appears to be comfortable. HEENT: Head is atraumatic, normocephalic. has evidence of the extensive vesicular rash in the scalp and forehead and now face, with significant edema around the right, but is able to open it at this time NECK: Supple. No JVD. No lymphadenopathy. No thyromegaly. LUNGS: Clear to auscultation. No wheezes or rhonchi. No intercostal retractions. HEART: Regular rate and rhythm. No murmur. ABDOMEN: Soft. Bowel sounds are present. No masses. No tenderness. EXTREMITIES: No pedal edema. No calf tenderness. Dorsalis pedis +2 bilaterally. SKIN: There is a dense vesicular rash which has worsened, the vesicles are in different phases which is highly consistent with primary varicella-zoster infection, new areas have developed around the eyes, but vision is clear and has been evaluated by ophthalmology. NEUROLOGICAL: Patient is awake, alert and oriented x3. - Labs CBC & Chem 7: 06/23/18 13:26 06/23/18 13:26 Labs: Microbiology - Last 24 Hours (Table) 06/23/18 23:21 Blood Culture Gram Stain - Preliminary Blood 06/23/18 10:15 Gram Stain - Preliminary Back Wound Culture - Preliminary 06/22/18 23:21 Blood Culture - Final Blood Laboratory Results WBC 12.7 k/uL (3.8-10.6) H 06/23/18 13:26 RBC 4.76 m/uL (4.30-5.90) 06/23/18 13:26 Hgb 14.5 gm/dL (13.0-17.5) 06/23/18 13:26 Hct 45.2 % (39.0-53.0) 06/23/18 13:26 MCV 94.9 fL (80.0-100.0) 06/23/18 13:26 MCH 30.5 pg (25.0-35.0) 06/23/18 13:26 MCHC 32.1 g/dL (31.0-37.0) 06/23/18 13:26 RDW 14.3 % (11.5-15.5) 06/23/18 13:26 Plt Count 63 k/uL (150-450) L 06/23/18 13:26 Neutrophils % (Manual) 27 % 06/23/18 13:26 Band Neutrophils % 13 % 06/22/18 23:21 Lymphocytes % (Manual) 73 % 06/23/18 13:26 Monocytes % (Manual) 1 % 06/22/18 23:21 Other Cells % % 06/23/18 13:26 Neutrophils # (Manual) 3.43 k/uL (1.3-7.7) 06/23/18 13:26 Lymphocytes # (Manual) 9.27 k/uL (1.0-4.8) H 06/23/18 13:26 Monocytes # (Manual) 0.15 k/uL (0-1.0) 06/22/18 23:21 Nucleated RBCs 0 /100 WBC (0-0) 06/23/18 13:26 Differential Comment 06/22/18 23:21 Manual Slide Review Performed 06/22/18 23:21 PT 10.2 sec (9.0-12.0) 06/24/18 16:02 INR 1.0 (<1.2) 06/24/18 16:02 Sodium 137 mmol/L (137-145) 06/23/18 13:26 Potassium 4.2 mmol/L (3.5-5.1) 06/23/18 13:26 Chloride 106 mmol/L (98-107) 06/23/18 13:26 Carbon Dioxide 23 mmol/L (22-30) 06/23/18 13:26 Anion Gap 8 mmol/L 06/23/18 13:26 BUN 14 mg/dL (9-20) 06/23/18 13:26 Creatinine 0.77 mg/dL (0.66-1.25) 06/23/18 13:26 Est GFR (CKD-EPI)AfAm >90 (>60 ml/min/1.73 sqM) 06/23/18 13:26 Est GFR (CKD-EPI)NonAf >90 (>60 ml/min/1.73 sqM) 06/23/18 13:26 Glucose 106 mg/dL (74-99) H 06/23/18 13:26 Calcium 7.9 mg/dL (8.4-10.2) L 06/23/18 13:26 Total Bilirubin 0.9 mg/dL (0.2-1.3) 06/23/18 13:26 AST 210 U/L (17-59) H 06/23/18 13:26 ALT 220 U/L (21-72) H 06/23/18 13:26 Alkaline Phosphatase 56 U/L (38-126) 06/23/18 13:26 C-Reactive Protein 21.1 mg/L (<10.0) H 06/22/18 23:21 Total Protein 5.6 g/dL (6.3-8.2) L 06/23/18 13:26 Albumin 3.4 g/dL (3.5-5.0) L 06/23/18 13:26 Amylase 47 U/L (30-110) 06/22/18 23:21 Lipase 68 U/L (23-300) 06/22/18 23:21 Urine Color Yellow 06/22/18 23:42 Urine Appearance Clear (Clear) 06/22/18 23:42 Urine pH 5.0 (5.0-8.0) 06/22/18 23:42 Ur Specific [place] 1.029 (1.001-1.035) 06/22/18 23:42 Urine Protein Trace (Negative) H 06/22/18 23:42 Urine Glucose (UA) Negative (Negative) 06/22/18 23:42 Urine Ketones Negative (Negative) 06/22/18 23:42 Urine Blood Small (Negative) H 06/22/18 23:42 Urine Nitrite Negative (Negative) 06/22/18 23:42 Urine Bilirubin Negative (Negative) 06/22/18 23:42 Urine Urobilinogen <2.0 mg/dL (<2.0) 06/22/18 23:42 Ur Leukocyte Esterase Negative (Negative) 06/22/18 23:42 Urine RBC 5 /hpf (0-5) 06/22/18 23:42 Urine WBC 2 /hpf (0-5) 06/22/18 23:42 Ur Squamous Epith Cells <1 /hpf (0-4) 06/22/18 23:42 Urine Bacteria Rare /hpf (None) H 06/22/18 23:42 Urine Mucus Few /hpf (None) H 06/22/18 23:42 Hepatitis A IgM Ab Non-Reactive (Non-Reactive) 06/23/18 13:30 Hep Bs Antigen Non-Reactive (Non-Reactive) 06/23/18 13:30 Hep B Core IgM Ab Non-Reactive (Non-Reactive) 06/23/18 13:30 Hep C IgG Ab Non-Reactive (Non-Reactive) 06/23/18 13:30 VZV IgG Antibody <0.2 AI 06/22/18 23:21 VZV IgG Interpret NEGATIVE (NEGATIVE) 06/22/18 23:21 Microbiology 06/23/18 23:21 Blood Blood Culture Gram Stain - Preliminary 06/23/18 23:21 Blood Blood Culture - Preliminary Coagulase Negative Staph 06/23/18 10:15 Back Gram Stain - Preliminary 06/23/18 10:15 Back Wound Culture - Preliminary 06/22/18 23:21 Blood Blood Culture - Final Assessment and Plan (1) VZV (varicella-zoster virus) infection Narrative/Plan: 57-year-old male with a history of salol relates to the relatively short history of onset of the rash that started on his scalp and then spread to his forehead. 3 days it has become evident on his chest abdomen right foot back. Associated with high-grade fever of over 2 generalized malaise significant chills and sweats the required him to sleep on Towels because he was sweating so considerably. The patient then developed significant abdominal pain after taking aspirin as well as his Medrol Dosepak, and he had received a Depo-Medrol injection. The abdominal pain continued to worsen in this is actually why he sought care in the emergency center. Upon arrival he had high-grade fever and evidence of this extensive rash. There is immunocompromised status and the vesicular nature of the rash is in different phases. Highly consistent with acute varicella-zoster infection, chickenpox. Patient was placed in appropriate airborne precautions and admitted. Intravenous acyclovir is being utilized and maneuvers to control his pain and fever being utilized also. He was receiving some Tylenol and IV Toradol has now been added. Caladryl is added to see if this can help with his itchy rash. The patient is concerned about his who does need some help in the home setting. Apparently some sisters and friends will be helping while he is hospitalized. Outpatient testing of the lesion has been done and this result is pending at this point in time. Serological evaluation for varicella-zoster is also requested. Antimicrobial therapy with vancomycin utilize the short run concerns of potential secondary skin infection especially given his significant level of immunocompromised from his CLL. Rocephin was discontinued. Continue with maneuvers to improve his temperature is hydration and pain we will expect improvement over the next 72 hours. 06/24/2018reveals the patient to have some worsening, He is now developed new Lesions periorbitally with some swelling to the right eye,but vision is intact as per ophthalmology. The Varicella IgG level is negative indicating no immunity to chickenpox, making it the most likley diagnosis at this time. Increase acyclovir to Q6 hours, since is having difficulties with the infusion instead of increasing each dose. Midline requested. Positive blood cultures for gram-positive cocci have been isolated. Continue vancomycin therapy. Follow up blood cultures requested in the morning. Patient aware that he is very ill. Current Visit: Yes Status: Acute Code(s): B02.9 - ZOSTER WITHOUT COMPLICATIONS; B01.9 - VARICELLA WITHOUT COMPLICATION SNOMED Code(s): 225588471 (2) History of chronic lymphocytic leukemia Current Visit: Yes Status: Acute Code(s): Z85.6 - PERSONAL HISTORY OF LEUKEMIA SNOMED Code(s): 28614504487436
[2018-06-25] MEDS: ACETAMINOPHEN TAB 325 MG TAB PO PRN (00:47)
[2018-06-25] MEDS: TRIAMCINOLONE ACET 0.1% OINTMENT 15 GM TUBE TOPICAL SCH ×3 (00:50→20:49)
[2018-06-25] MEDS: diphenhydrAMINE 50 MG/ML 1 ML VIAL IVP SCH ×4 (00:56→17:14)
[2018-06-25] MEDS: KETOROLAC 30 MG/ML 1 ML VIAL IVP SCH ×4 (03:39→20:42)
[2018-06-25] MEDS: ACYCLOVIR SODIUM 1,000 MG in SODIUM CHLORIDE 0.9% 250 ML IVPB SCH ×4 (05:00→20:43)
[2018-06-25] MEDS ORDERED: VANCOMYCIN TROUGH DUE 1 EACH MISC MISCELLANE ONE (05:00)
[2018-06-25 05:41] LABS: HCT 40.8 % (39.0-53.0); HGB 13.2 gm/dL (13.0-17.5); MCH 30.9 pg (25.0-35.0); MCHC 32.3 g/dL (31.0-37.0); MCV 95.6 fL (80.0-100.0); Mean Platelet Volume 8.4; RBC 4.27 m/uL (4.30-5.90); RDW 14.4 % (11.5-15.5); WBC 8.9 k/uL (3.8-10.6)
[2018-06-25 05:50] LABS: Platelet Count 52 k/uL (150-450)
[2018-06-25] MEDS ORDERED: MORPHINE ORAL SOLN 10 MG/5 ML CUP PO PRN (05:55)
[2018-06-25 05:57] LABS: ALT 220 U/L (21-72); AST 133 U/L (17-59); Albumin 2.6 g/dL (3.5-5.0); Alkaline Phosphatase 58 U/L (38-126); Anion Gap 4 mmol/L; Blood Urea Nitrogen 11 mg/dL (9-20); Calcium 7.8 mg/dL (8.4-10.2); Carbon Dioxide 24 mmol/L (22-30); Chloride 111 mmol/L (98-107); Glucose 106 mg/dL (74-99); Potassium 3.7 mmol/L (3.5-5.1); Sodium 139 mmol/L (137-145); Total Protein 4.6 g/dL (6.3-8.2)
[2018-06-25] MEDS: VANCOMYCIN 2,000 MG in SODIUM CHLORIDE 0.9% 500 ML IVPB SCH (06:50)
[2018-06-25 06:57] LABS: Eosinophils # (M) 0.09 k/uL (0-0.7); Lymphocytes # (M) 6.94 k/uL (1.0-4.8); Monocytes # (M) 0.71 k/uL (0-1.0); Neutrophils # (M) 1.16 k/uL (1.3-7.7); Neutrophils % (M) 13 %; Nucleated Red Blood Cells 0 /100 WBC (0-0); Total Cells Counted 100
[2018-06-25] MEDS: LISINOPRIL 5 MG TAB PO SCH (10:21)
[2018-06-25] MEDS: SUCRALFATE 1 GM TAB PO SCH ×4 (10:21→20:41)
[2018-06-25] MEDS: ENOXAPARIN 40 MG/0.4 ML SYRINGE SQ SCH (10:21)
[2018-06-25] MEDS: SODIUM BICARBONATE TAB 650 MG TAB PO SCH ×3 (10:21→20:41)
[2018-06-25] MEDS: LACTATED RINGERS 1,000 ML IV SCH ×2 (10:22→15:49)
[2018-06-25] MEDS: PANTOPRAZOLE 40 MG/10 ML VIAL IVP SCH (10:25)
[2018-06-25 10:59] LABS: Natural Killer Cell (CD16/56) 30 cell/ul (60-500); Natural Killer Cell (CD16/56)% <1 % (3-24); T Helper Cell (CD4) 156 cell/ul (443-1471); T Helper Cell (CD4) % 2 % (35-66); T Suppressor Cell (CD8) 165 cell/ul (190-832); T Suppressor Cell (CD8) % 2 % (9-37); T4/T8 Ratio (CD4:CD8) 0.9 (1.0-3.7); Total B Cell (CD19) >3000 cell/ul (100-524); Total T Cell (CD3) 319 cell/ul (704-2138); Total T Cell (CD3)% 4 % (55-86)
[2018-06-25] MEDS: VANCOMYCIN 1,750 MG in SODIUM CHLORIDE 0.9% 500 ML IVPB SCH (15:43)
[2018-06-25] MEDS ORDERED: VANCOMYCIN 1,750 MG in SODIUM CHLORIDE 0.9% 250 ML IVPB SCH (16:00)
--- NOTE | 2018-06-25 17:12 | P.PN ---
Subjective Progress Note Date: 06/25/18 Principal diagnosis: Rash and Bacteremia Rash is worsening today, Blood cultures positive Objective - Vital Signs Vital signs: Vital Signs Temp 97.1 F L 06/25/18 14:55 Pulse 56 L 06/25/18 14:55 Resp 18 06/25/18 15:13 BP 137/58 06/25/18 14:55 Pulse Ox 99 06/25/18 14:55 Intake & Output 06/24/18 06/25/18 06/25/18 18:59 06:59 18:59 Intake Total 240 Balance 240 Intake: Oral 240 Other: # Voids 3 1 1 # Bowel Movements 1 - Exam General - NAD, Alert and Oriented x3 Head - NC, NT Eyes - Erythema and Edema, right eye closed shut Neck - Supple, Trachea Midline Lungs CTA Bilateral, no uincreased effort Heart RRR, S1S2 Abdomen Softy, ND, NT Extremities = Mild Generalized edema with diffuse lesions present Skin - Dry, Scaley crusted and non crusted lesions present from head to bilateral arms, posterior and anterior thorax. - Labs CBC & Chem 7: 06/25/18 05:19 06/25/18 05:19 Labs: Abnormal Lab Results - Last 24 Hours (Table) 06/23/18 06/24/18 06/25/18 Range/Units 13:26 10:13 05:19 RBC 4.27 L (4.30-5.90) m/uL Plt Count 52 L (150-450) k/uL Neutrophils # (Manual) 1.16 L (1.3-7.7) k/uL Lymphocytes # (Manual) 6.94 H (1.0-4.8) k/uL Chloride (98-107) mmol/L Glucose (74-99) mg/dL Calcium (8.4-10.2) mg/dL AST (17-59) U/L ALT (21-72) U/L Total Protein (6.3-8.2) g/dL Albumin (3.5-5.0) g/dL T-Suppressor Cells 165 L (190-832) cell/ul Total T Cells 319 L (704-2138) cell/ul Natural Killer Cells 30 L (60-500) cell/ul % CD3 Cells 4 L (55-86) % % CD4 [place] 2 L (35-66) % Absolute CD4 [place] 156 L (443-1471) cell/ul CD4/CD8 Ratio 0.9 L (1.0-3.7) % CD8 Suppressor 2 L (9-37) % % CD16/CD56 Cells <1 L (3-24) % % CD19 Cells 94 H (4-25) % Total CD19+ B Cells >3000 H (100-524) cell/ul Viral Test See Below H 06/25/18 Range/Units 05:19 RBC (4.30-5.90) m/uL Plt Count (150-450) k/uL Neutrophils # (Manual) (1.3-7.7) k/uL Lymphocytes # (Manual) (1.0-4.8) k/uL Chloride 111 H (98-107) mmol/L Glucose 106 H (74-99) mg/dL Calcium 7.8 L (8.4-10.2) mg/dL AST 133 H (17-59) U/L ALT 220 H (21-72) U/L Total Protein 4.6 L (6.3-8.2) g/dL Albumin 2.6 L (3.5-5.0) g/dL T-Suppressor Cells (190-832) cell/ul Total T Cells (704-2138) cell/ul Natural Killer Cells (60-500) cell/ul % CD3 Cells (55-86) % % CD4 [place] (35-66) % Absolute CD4 [place] (443-1471) cell/ul CD4/CD8 Ratio (1.0-3.7) % CD8 Suppressor (9-37) % % CD16/CD56 Cells (3-24) % % CD19 Cells (4-25) % Total CD19+ B Cells (100-524) cell/ul Viral Test Microbiology - Last 24 Hours (Table) 06/23/18 10:15 Gram Stain - Final Back Wound Culture - Final 06/23/18 23:21 Blood Culture Gram Stain - Preliminary Blood Blood Culture - Preliminary Coagulase Negative Staph Assessment and Plan Plan: Assessment and Recommendations: 1. Chronic Lymphocytis Leukemia - Has been on Observation since 2006 - WBC appears to be maintained at his baseline between 10-15, Today 12.7 - I will check immunoglobulins and provide IGG if Resnable to assist i fighting any acute or active infection 2. Thrombocytopenia - Mildly below his baseline 90-110 - Today 63, worse from acute infection - Monitor closely and hold anticoagulation ifless than 50K 3. Disseminated Shingles affecting Right Eye - Per Infectious Disease - Continue on Acyclovir and precautions maintained. - Recommend a biopsy of lesions with path sent for Flow Cytometry 4. Liver Transiminitis - ?Medications - Hep Panel Negative - CT scan failed to show underlying etiology - Recheck CBC and CMP in am - Check Coags
[2018-06-25] MEDS: PANTOPRAZOLE 40 MG TABLET PO SCH (17:17)
[2018-06-25] MEDS ORDERED: FUROSEMIDE 10 MG/ML 4 ML VIAL IV STA (23:24)
--- NOTE | 2018-06-25 23:45 | P.PN ---
Subjective Progress Note Date: 06/25/18 This is a 57-year-old male patient who has a significant past history of CLL currently without any treatment and being monitored. Patient gives history that a month ago his had shingles and is completely healed and all the vesicles scabbed and healed over. She was treated with Valtrex. He noticed on Saturday that he was feeling punky, his eyes hurt, throat scratchy. When he showered he noticed he had 2 small bumps on the top of the scalp. He went to work for the day and when he got home seen the bumps were worse with more bumps and now they were bubbles. He went to the clinic and was seen by nurse practitioner in's by that time it started to spread on his scalp. He was given an IM steroid injection and started on Medrol Dosepak and hydrocortisone cream. He ended up going shopping and then went home. On Saturday the rash had spread to his forehead and into his face and by Saturday it was down into his neck and started to go into his chest and back. He went to the clinic in [place] and had blood work done and culture was obtained from one of the draining vesicles on his scalp. He was sent home with Valtrex but he developed significant epigastric pain that was worse every time he ate or drank something. He states he has been taking aspirin 650 mg every 4-6 hours with either milk or food. He states this pain was a #7 and brought him to tears. This time he was also having fever and chills and sweats during the night that soaked sheets. Because of the sweats he has not been able to sleep. On Saturday he was eating okay but by Saturday he had decreased appetite. He came in to [facility] emergency center for evaluation. He was given morphine in the ER which he states he almost passed out and felt very woozy from it. He was given liter of IV fluids and an EKG was done that showed a normal sinus rhythm without acute ST changes. CAT scan of the abdomen and pelvis with contrast revealed nonobstructive left renal calculus, large renal parapelvic cyst. Normal appendix. Mild splenomegaly. He has had a temperature maximum 101.4, white count of 15.1, platelet count 80, AST 158 and ALT 186. Alkaline phosphatase 71. Urinalysis was negative for infection but there was small amount of blood. Renal function was BUN 18 and creatinine 0.6. Patient was started in the ER on acyclovir, Rocephin and vancomycin and [facility] floor and continued on the same. Now the rash is also spread to his entire chest abdomen active but ox and a few lesions on his arms and right foot. He is complaining of pain in his mouth but no lesions are noted. Patient has never had chickenpox or the vaccine. 06/24/2018 patient has worsened today. he has developed new lesions to his and periorbital edema and swelling Fortunately his vision is intact. He is somewhat miserable but no worse than yesterday He is eating, back and forth to the bathroom and is not in severe pain.he has been seen by dermatology. 06/25/2018 patient has some improvement today. The extensive facial edema has resolved and the periorbital area, right eye is now completely open. He has developed some edema around the face and neck area without dyspnea or stridor. Patient is fatigued continues to feel poorly but feels better than admission. The vesicles of the scalp and forehead are healing as they are on the chest and abdomen. Some are a bit hemorrhagic in nature though. No other new lesions are seen. Some generalized erythema to the skin is improved. Objective - Vital Signs Vital signs: Vital Signs Temp 97.1 F L 06/25/18 14:55 Pulse 56 L 06/25/18 14:55 Resp 18 06/25/18 15:13 BP 137/58 06/25/18 14:55 Pulse Ox 99 06/25/18 14:55 Intake & Output 06/25/18 06/25/18 06/26/18 06:59 18:59 06:59 Intake Total 240 400 Balance 240 400 Intake: Oral 240 400 Other: Voiding Method Toilet Urinal # Voids 1 1 1 # Bowel Movements 1 - Exam Gen: This is a 57-year-old male. He is sitting up in bed and appears to be comfortable. HEENT: Head is atraumatic, normocephalic. has evidence of the extensive vesicular rash in the scalp and forehead and now face, with significant edema around the right, but is able to open it at this time NECK: Supple. No JVD. No lymphadenopathy. No thyromegaly. LUNGS: Clear to auscultation. No wheezes or rhonchi. No intercostal retractions. HEART: Regular rate and rhythm. No murmur. ABDOMEN: Soft. Bowel sounds are present. No masses. No tenderness. EXTREMITIES: No pedal edema. No calf tenderness. Dorsalis pedis +2 bilaterally. SKIN: There is a dense vesicular rash which has worsened, the vesicles are in different phases which is highly consistent with primary varicella-zoster infection, new areas have developed around the eyes, but vision is clear and has been evaluated by ophthalmology. NEUROLOGICAL: Patient is awake, alert and oriented x3. - Labs CBC & Chem 7: 06/25/18 05:19 06/25/18 05:19 Labs: Abnormal Lab Results - Last 24 Hours (Table) 06/23/18 06/24/18 06/25/18 Range/Units 13:26 10:13 05:19 RBC 4.27 L (4.30-5.90) m/uL Plt Count 52 L (150-450) k/uL Neutrophils # (Manual) 1.16 L (1.3-7.7) k/uL Lymphocytes # (Manual) 6.94 H (1.0-4.8) k/uL Chloride (98-107) mmol/L Glucose (74-99) mg/dL Calcium (8.4-10.2) mg/dL AST (17-59) U/L ALT (21-72) U/L Total Protein (6.3-8.2) g/dL Albumin (3.5-5.0) g/dL T-Suppressor Cells 165 L (190-832) cell/ul Total T Cells 319 L (704-2138) cell/ul Natural Killer Cells 30 L (60-500) cell/ul % CD3 Cells 4 L (55-86) % % CD4 [place] 2 L (35-66) % Absolute CD4 [place] 156 L (443-1471) cell/ul CD4/CD8 Ratio 0.9 L (1.0-3.7) % CD8 Suppressor 2 L (9-37) % % CD16/CD56 Cells <1 L (3-24) % % CD19 Cells 94 H (4-25) % Total CD19+ B Cells >3000 H (100-524) cell/ul Viral Test See Below H 06/25/18 Range/Units 05:19 RBC (4.30-5.90) m/uL Plt Count (150-450) k/uL Neutrophils # (Manual) (1.3-7.7) k/uL Lymphocytes # (Manual) (1.0-4.8) k/uL Chloride 111 H (98-107) mmol/L Glucose 106 H (74-99) mg/dL Calcium 7.8 L (8.4-10.2) mg/dL AST 133 H (17-59) U/L ALT 220 H (21-72) U/L Total Protein 4.6 L (6.3-8.2) g/dL Albumin 2.6 L (3.5-5.0) g/dL T-Suppressor Cells (190-832) cell/ul Total T Cells (704-2138) cell/ul Natural Killer Cells (60-500) cell/ul % CD3 Cells (55-86) % % CD4 [place] (35-66) % Absolute CD4 [place] (443-1471) cell/ul CD4/CD8 Ratio (1.0-3.7) % CD8 Suppressor (9-37) % % CD16/CD56 Cells (3-24) % % CD19 Cells (4-25) % Total CD19+ B Cells (100-524) cell/ul Viral Test Microbiology - Last 24 Hours (Table) 06/23/18 10:15 Gram Stain - Final Back Wound Culture - Final 06/23/18 23:21 Blood Culture Gram Stain - Preliminary Blood Blood Culture - Preliminary Coagulase Negative Staph Laboratory Results WBC 8.9 k/uL (3.8-10.6) 06/25/18 05:19 RBC 4.27 m/uL (4.30-5.90) L 06/25/18 05:19 Hgb 13.2 gm/dL (13.0-17.5) 06/25/18 05:19 Hct 40.8 % (39.0-53.0) 06/25/18 05:19 MCV 95.6 fL (80.0-100.0) 06/25/18 05:19 MCH 30.9 pg (25.0-35.0) 06/25/18 05:19 MCHC 32.3 g/dL (31.0-37.0) 06/25/18 05:19 RDW 14.4 % (11.5-15.5) 06/25/18 05:19 Plt Count 52 k/uL (150-450) L 06/25/18 05:19 Neutrophils % (Manual) 13 % 06/25/18 05:19 Band Neutrophils % 13 % 06/22/18 23:21 Lymphocytes % (Manual) 78 % 06/25/18 05:19 Monocytes % (Manual) 8 % 06/25/18 05:19 Eosinophils % (Manual) 1 % 06/25/18 05:19 Other Cells % % 06/23/18 13:26 Neutrophils # (Manual) 1.16 k/uL (1.3-7.7) L 06/25/18 05:19 Lymphocytes # (Manual) 6.94 k/uL (1.0-4.8) H 06/25/18 05:19 Monocytes # (Manual) 0.71 k/uL (0-1.0) 06/25/18 05:19 Eosinophils # (Manual) 0.09 k/uL (0-0.7) 06/25/18 05:19 Nucleated RBCs 0 /100 WBC (0-0) 06/25/18 05:19 Differential Comment 06/25/18 05:19 Manual Slide Review Performed 06/25/18 05:19 PT 10.2 sec (9.0-12.0) 06/24/18 16:02 INR 1.0 (<1.2) 06/24/18 16:02 Sodium 139 mmol/L (137-145) 06/25/18 05:19 Potassium 3.7 mmol/L (3.5-5.1) 06/25/18 05:19 Chloride 111 mmol/L (98-107) H 06/25/18 05:19 Carbon Dioxide 24 mmol/L (22-30) 06/25/18 05:19 Anion Gap 4 mmol/L 06/25/18 05:19 BUN 11 mg/dL (9-20) 06/25/18 05:19 Creatinine 0.67 mg/dL (0.66-1.25) 06/25/18 05:19 Est GFR (CKD-EPI)AfAm >90 (>60 ml/min/1.73 sqM) 06/25/18 05:19 Est GFR (CKD-EPI)NonAf >90 (>60 ml/min/1.73 sqM) 06/25/18 05:19 Glucose 106 mg/dL (74-99) H 06/25/18 05:19 Calcium 7.8 mg/dL (8.4-10.2) L 06/25/18 05:19 Total Bilirubin 1.0 mg/dL (0.2-1.3) 06/25/18 05:19 AST 133 U/L (17-59) H 06/25/18 05:19 ALT 220 U/L (21-72) H 06/25/18 05:19 Alkaline Phosphatase 58 U/L (38-126) 06/25/18 05:19 C-Reactive Protein 21.1 mg/L (<10.0) H 06/22/18 23:21 Total Protein 4.6 g/dL (6.3-8.2) L 06/25/18 05:19 Albumin 2.6 g/dL (3.5-5.0) L 06/25/18 05:19 Amylase 47 U/L (30-110) 06/22/18 23:21 Lipase 68 U/L (23-300) 06/22/18 23:21 Urine Color Yellow 06/22/18 23:42 Urine Appearance Clear (Clear) 06/22/18 23:42 Urine pH 5.0 (5.0-8.0) 06/22/18 23:42 Ur Specific Rudd 1.029 (1.001-1.035) 06/22/18 23:42 Urine Protein Trace (Negative) H 06/22/18 23:42 Urine Glucose (UA) Negative (Negative) 06/22/18 23:42 Urine Ketones Negative (Negative) 06/22/18 23:42 Urine Blood Small (Negative) H 06/22/18 23:42 Urine Nitrite Negative (Negative) 06/22/18 23:42 Urine Bilirubin Negative (Negative) 06/22/18 23:42 Urine Urobilinogen <2.0 mg/dL (<2.0) 06/22/18 23:42 Ur Leukocyte Esterase Negative (Negative) 06/22/18 23:42 Urine RBC 5 /hpf (0-5) 06/22/18 23:42 Urine WBC 2 /hpf (0-5) 06/22/18 23:42 Ur Squamous Epith Cells <1 /hpf (0-4) 06/22/18 23:42 Urine Bacteria Rare /hpf (None) H 06/22/18 23:42 Urine Mucus Few /hpf (None) H 06/22/18 23:42 Vancomycin Trough 5.6 ug/mL 06/25/18 05:19 T-Suppressor Cells 165 cell/ul (190-832) L 06/23/18 13:26 Total T Cells 319 cell/ul (704-2138) L 06/23/18 13:26 Natural Killer Cells 30 cell/ul (60-500) L 06/23/18 13:26 % CD3 Cells 4 % (55-86) L 06/23/18 13:26 % CD4 [place] 2 % (35-66) L 06/23/18 13:26 Absolute CD4 [place] 156 cell/ul (443-1471) L 06/23/18 13:26 CD4/CD8 Ratio 0.9 (1.0-3.7) L 06/23/18 13:26 % CD8 Suppressor 2 % (9-37) L 06/23/18 13:26 % CD16/CD56 Cells <1 % (3-24) L 06/23/18 13:26 % CD19 Cells 94 % (4-25) H 06/23/18 13:26 Total CD19+ B Cells >3000 cell/ul (100-524) H 06/23/18 13:26 Hepatitis A IgM Ab Non-Reactive (Non-Reactive) 06/23/18 13:30 Hep Bs Antigen Non-Reactive (Non-Reactive) 06/23/18 13:30 Hep B Core IgM Ab Non-Reactive (Non-Reactive) 06/23/18 13:30 Hep C IgG Ab Non-Reactive (Non-Reactive) 06/23/18 13:30 VZV IgG Antibody <0.2 AI 06/22/18 23:21 VZV IgG Interpret NEGATIVE (NEGATIVE) 06/22/18 23:21 Virus Source See Below 06/24/18 10:13 Viral Test See Below H 06/24/18 10:13 Virus Analysis Interp See Below 06/24/18 10:13 Assessment and Plan (1) VZV (varicella-zoster virus) infection Narrative/Plan: 57-year-old male with a history of salol relates to the relatively short history of onset of the rash that started on his scalp and then spread to his forehead. 3 days it has become evident on his chest abdomen right foot back. Associated with high-grade fever of over 2 generalized malaise significant chills and sweats the required him to sleep on Towels because he was sweating so considerably. The patient then developed significant abdominal pain after taking aspirin as well as his Medrol Dosepak, and he had received a Depo-Medrol injection. The abdominal pain continued to worsen in this is actually why he sought care in the emergency center. Upon arrival he had high-grade fever and evidence of this extensive rash. There is immunocompromised status and the vesicular nature of the rash is in different phases. Highly consistent with acute varicella-zoster infection, chickenpox. Patient was placed in appropriate airborne precautions and admitted. Intravenous acyclovir is being utilized and maneuvers to control his pain and fever being utilized also. He was receiving some Tylenol and IV Toradol has now been added. Caladryl is added to see if this can help with his itchy rash. The patient is concerned about his who does need some help in the home setting. Apparently some sisters and friends will be helping while he is hospitalized. Outpatient testing of the lesion has been done and this result is pending at this point in time. Serological evaluation for varicella-zoster is also requested. Antimicrobial therapy with vancomycin utilize the short run concerns of potential secondary skin infection especially given his significant level of immunocompromised from his CLL. Rocephin was discontinued. Continue with maneuvers to improve his temperature is hydration and pain we will expect improvement over the next 72 hours. 06/24/2018reveals the patient to have some worsening, He is now developed new Lesions periorbitally with some swelling to the right eye,but vision is intact as per ophthalmology. The Varicella IgG level is negative indicating no immunity to chickenpox, making it the most likley diagnosis at this time. Increase acyclovir to Q6 hours, since is having difficulties with the infusion instead of increasing each dose. Midline requested. Positive blood cultures for gram-positive cocci have been isolated. Continue vancomycin therapy. Follow up blood cultures requested in the morning. Patient aware that he is very ill. 06/25/2018 the patient's viral testing has confirmed varicella-zoster. Blood culture could potentially be a coagulase-negative staph and await further data. Follow-up blood cultures have been requested. Input from hematology oncology has occurred due to his underlying CLL. They relate he has a known low IgG level and consequently IVIG has been ordered by hematology. Patient does seem to be showing some improvement with the intravenous acyclovir and the dose was increased in different IV access has been obtained to hopefully improve his level of discomfort. Current Visit: Yes Status: Acute Code(s): B02.9 - ZOSTER WITHOUT COMPLICATIONS; B01.9 - VARICELLA WITHOUT COMPLICATION SNOMED Code(s): 073226724 (2) History of chronic lymphocytic leukemia Current Visit: Yes Status: Acute Code(s): Z85.6 - PERSONAL HISTORY OF LEUKEMIA SNOMED Code(s): 57911204471272
--- NOTE | 2018-06-25 23:57 | PN ---
PROGRESS NOTE DATE OF SERVICE: 06/25/2018 PRESENTING COMPLAINT: Diffuse rash. INTERVAL HISTORY: This patient with CLL has presented with disseminated herpes zoster infection with possibly a secondary infection, especially on the scalp. Last night I spoke to Dr. Espino and we decided to increase the dose of acyclovir to 50 mg/kg. Also patient was put on IV Benadryl yesterday, which has given the patient relief. Eye swelling actually has gone down. The patient is able to tolerate a diet. The patient is slightly short of breath. The redness is actually going down. REVIEW OF SYSTEMS: Done for constitutional, cardiovascular, GI, pulmonary; relevant findings as above. CURRENT MEDICATIONS: Reviewed. They include IV acyclovir, calamine lotion, Benadryl, Lovenox, Toradol, Carafate, vancomycin. PHYSICAL EXAMINATION: Temperature 97.1, pulse 56, respiration 18, blood pressure 137/58, pulse ox 98% on room air. GENERAL APPEARANCE: Sitting up. Awake. HEENT: Multiple lesions on the scalp that have and broken down with some secondary infection. RESPIRATORY: Effort slightly increased. LUNGS: Clear. CARDIOVASCULAR: First and second sounds normal. No edema. ABDOMEN: Soft, non-tender. Liver and spleen not palpable. PSYCHIATRY: Alert and oriented x3. Mood and affect normal. DERMATOLOGICAL: Diffuse rash; most of the scalp, face, less on the torso and extremities. INVESTIGATIONS: White count 8.9, platelets 52. Potassium 3.7, AST 133, ALT 220, albumin 2.6. Patient's herpes zoster from the chest wall has come back positive. ASSESSMENT: 1. Acute severe disseminated herpes zoster infection in a patient who is immunosuppressed from underlying CLL. 2. Acute hepatitis from disseminated herpes zoster virus. 3. Essential hypertension. 4. Chronic lymphocytic leukemia. 5. Left renal calculi, asymptomatic. 6. Redness from above, improving. 7. Secondary skin infection likely. 8. Thrombocytopenia, likely acute infection. 9. Hypoalbuminemia as an acute phase reactant. PLAN: I spoke at length with the patient today. I also spoke to Dr. Tucker this morning. They are checking patient's immunoglobulin levels. If that is low, patient may need to get immunoglobulin. The patient seems to be clinically starting to turn around slowly. The infection is still severe. Patient is currently on acyclovir 1000 mg q.6. Will do a chest x-ray and cut back on IV fluids. MMODL / IJN: [id number] /
[2018-06-26] MEDS: ACETAMINOPHEN TAB 325 MG TAB PO PRN (00:10)
[2018-06-26] MEDS: diphenhydrAMINE 50 MG/ML 1 ML VIAL IVP SCH ×4 (00:13→17:53)
[2018-06-26] MEDS: VANCOMYCIN 1,750 MG in SODIUM CHLORIDE 0.9% 500 ML IVPB SCH ×3 (00:14→16:54)
[2018-06-26] MEDS: LACTATED RINGERS 1,000 ML IV SCH (00:15)
[2018-06-26] MEDS: LACTATED RINGERS 500 ML IV SCH (00:16)
--- NOTE | 2018-06-26 00:27 | XR ---
EXAMINATION TYPE: XR chest 1V DATE OF EXAM: 06/26/2018 COMPARISON: 11/04/2010 HISTORY: Short of breath TECHNIQUE: Single frontal view of the chest is obtained. FINDINGS: Heart and mediastinum are normal. Lungs are clear. Diaphragm is normal. There are chest le ads. Bony thorax is intact. IMPRESSION: Normal chest. No change.
[2018-06-26] MEDS: KETOROLAC 30 MG/ML 1 ML VIAL IVP SCH ×4 (02:25→21:25)
[2018-06-26] MEDS: ACYCLOVIR SODIUM 1,000 MG in SODIUM CHLORIDE 0.9% 250 ML IVPB SCH ×4 (02:27→15:06)
[2018-06-26] MEDS: SODIUM BICARBONATE TAB 650 MG TAB PO SCH ×3 (08:12→21:25)
[2018-06-26] MEDS: ENOXAPARIN 40 MG/0.4 ML SYRINGE SQ SCH (08:12)
[2018-06-26] MEDS: PANTOPRAZOLE 40 MG TABLET PO SCH ×2 (08:13→16:54)
[2018-06-26] MEDS: LISINOPRIL 5 MG TAB PO SCH (08:13)
[2018-06-26] MEDS: TRIAMCINOLONE ACET 0.1% OINTMENT 15 GM TUBE TOPICAL SCH ×2 (08:14→21:31)
[2018-06-26] MEDS: SUCRALFATE 1 GM TAB PO SCH ×4 (08:24→21:25)
[2018-06-26 08:32] LABS: HCT 41.1 % (39.0-53.0); HGB 12.9 gm/dL (13.0-17.5); MCH 30.1 pg (25.0-35.0); MCHC 31.3 g/dL (31.0-37.0); MCV 96.4 fL (80.0-100.0); Mean Platelet Volume 8.4; RBC 4.26 m/uL (4.30-5.90); RDW 14.4 % (11.5-15.5); WBC 11.1 k/uL (3.8-10.6)
[2018-06-26 08:39] LABS: Platelet Count 60 k/uL (150-450)
[2018-06-26 08:54] LABS: ALT 193 U/L (21-72); AST 115 U/L (17-59); Albumin 2.9 g/dL (3.5-5.0); Alkaline Phosphatase 71 U/L (38-126); Anion Gap 6 mmol/L; Blood Urea Nitrogen 13 mg/dL (9-20); Calcium 7.7 mg/dL (8.4-10.2); Carbon Dioxide 27 mmol/L (22-30); Chloride 107 mmol/L (98-107); Glucose 87 mg/dL (74-99); Potassium 4.1 mmol/L (3.5-5.1); Sodium 140 mmol/L (137-145); Total Bilirubin 1.1 mg/dL (0.2-1.3); Total Protein 5.1 g/dL (6.3-8.2)
[2018-06-26 10:16] LABS: Lymphocytes # (M) 8.55 k/uL (1.0-4.8); Monocytes # (M) 0.89 k/uL (0-1.0); Neutrophils # (M) 1.67 k/uL (1.3-7.7); Neutrophils % (M) 15 %; Nucleated Red Blood Cells 0 /100 WBC (0-0); Total Cells Counted 100
[2018-06-26 10:17] LABS: Poikilocytosis (M) Present
[2018-06-26 12:25] LABS: Immunoglobulin A <25.5 mg/dL (60.0-350.0); Immunoglobulin M <16.9 mg/dL (40.0-280.0)
[2018-06-26 16:40] LABS: Desmoglein 1 0.64 U (<14.0)
--- NOTE | 2018-06-26 16:41 | P.PN ---
Subjective Progress Note Date: 06/26/18 Principal diagnosis: Rash and Bacteremia Rash is worsening today, Blood cultures positive Igg decreased will give IVIG - Gammagard 30grams daily x3 Objective - Vital Signs Vital signs: Vital Signs Temp 99.3 F 06/26/18 15:00 Pulse 51 L 06/26/18 15:00 Resp 16 06/26/18 15:00 BP 151/79 06/26/18 15:00 Pulse Ox 99 06/26/18 15:00 Intake & Output 06/25/18 06/26/18 06/26/18 18:59 06:59 18:59 Intake Total 750 1160 Balance 750 1160 Intake: IV 1160 Acyclovir Sodium 1,000 mg 500 In Sodium Chloride 0.9% 250 ml @ 180 mls/hr IVPB Q6H [facility] Rx#:[id number] Lactated Ringers 500 ml @ 160 20 mls/hr IV .Q24H [facility] Rx#:[id number] Vancomycin 1,750 mg In 500 Sodium Chloride 0.9% 500 ml @ 167 mls/hr IVPB Q8HR [facility] Rx#:[id number] Oral 750 Other: Voiding Method Toilet Urinal # Voids 1 2 1 # Bowel Movements 1 - Exam General - NAD, Alert and Oriented x3 Head - NC, NT Eyes - Erythema and Edema, right eye closed shut Neck - Supple, Trachea Midline Lungs CTA Bilateral, no uincreased effort Heart RRR, S1S2 Abdomen Softy, ND, NT Extremities = Mild Generalized edema with diffuse lesions present Skin - Dry, Scaley crusted and non crusted lesions present from head to bilateral arms, posterior and anterior thorax. - Labs CBC & Chem 7: 06/26/18 08:09 06/26/18 08:09 Labs: Abnormal Lab Results - Last 24 Hours (Table) 06/24/18 06/25/18 06/26/18 Range/Units 10:13 05:19 08:09 WBC (3.8-10.6) k/uL RBC (4.30-5.90) m/uL Hgb (13.0-17.5) gm/dL Plt Count (150-450) k/uL Lymphocytes # (Manual) (1.0-4.8) k/uL Calcium 7.7 L (8.4-10.2) mg/dL AST 115 H (17-59) U/L ALT 193 H (21-72) U/L Total Protein 5.1 L (6.3-8.2) g/dL Albumin 2.9 L (3.5-5.0) g/dL IgG 349.0 L (700.0-1600.0) mg/dL IgA <25.5 L (60.0-350.0) mg/dL IgM <16.9 L (40.0-280.0) mg/dL Viral Test See Below H 06/26/18 Range/Units 08:09 WBC 11.1 H (3.8-10.6) k/uL RBC 4.26 L (4.30-5.90) m/uL Hgb 12.9 L (13.0-17.5) gm/dL Plt Count 60 L (150-450) k/uL Lymphocytes # (Manual) 8.55 H (1.0-4.8) k/uL Calcium (8.4-10.2) mg/dL AST (17-59) U/L ALT (21-72) U/L Total Protein (6.3-8.2) g/dL Albumin (3.5-5.0) g/dL IgG (700.0-1600.0) mg/dL IgA (60.0-350.0) mg/dL IgM (40.0-280.0) mg/dL Viral Test Microbiology - Last 24 Hours (Table) 06/25/18 05:19 Blood Culture - Preliminary Blood No Growth after 24 hours 06/25/18 05:28 Blood Culture - Preliminary Blood No Growth after 24 hours 06/23/18 10:15 Gram Stain - Final Back Wound Culture - Final Assessment and Plan Plan: Assessment and Recommendations: 1. Chronic Lymphocytis Leukemia - Has been on Observation since 2006 - WBC appears to be maintained at his baseline between 10-15, Today 11.1 - Immunoglobulins decreased, 30grams IVIG (Gammagard) ordered daily x3 doses 2. Thrombocytopenia - Mildly below his baseline 90-110 - Today 66, worse from acute infection - Monitor closely and hold anticoagulation ifless than 50K 3. Disseminated Shingles affecting Right Eye - Per Infectious Disease - Continue on Acyclovir and precautions maintained. - Biopsy proven 4. Liver Transiminitis - ?Medications - Hep Panel Negative - CT scan failed to show underlying etiology - Recheck CBC and CMP in am
[2018-06-26] MEDS ORDERED: IMMUNE GLOBULIN 30 GM/300 ML IV SCH (17:00)
[2018-06-26] MEDS ORDERED: IMMUNE GLOBULIN (HUMAN-IGG) 30 GM in EMPTY BAG 1 BAG IV ONE (18:00)
[2018-06-26] MEDS ORDERED: FUROSEMIDE 10 MG/ML 4 ML VIAL IV STA (22:55)
--- NOTE | 2018-06-26 22:55 | P.PN ---
Subjective Progress Note Date: 06/26/18 This is a 57-year-old male patient who has a significant past history of CLL currently without any treatment and being monitored. Patient gives history that a month ago his had shingles and is completely healed and all the vesicles scabbed and healed over. She was treated with Valtrex. He noticed on Saturday that he was feeling punky, his eyes hurt, throat scratchy. When he showered he noticed he had 2 small bumps on the top of the scalp. He went to work for the day and when he got home seen the bumps were worse with more bumps and now they were bubbles. He went to the clinic and was seen by nurse practitioner in's by that time it started to spread on his scalp. He was given an IM steroid injection and started on Medrol Dosepak and hydrocortisone cream. He ended up going shopping and then went home. On Saturday the rash had spread to his forehead and into his face and by Saturday it was down into his neck and started to go into his chest and back. He went to the clinic in [facility] and had blood work done and culture was obtained from one of the draining vesicles on his scalp. He was sent home with Valtrex but he developed significant epigastric pain that was worse every time he ate or drank something. He states he has been taking aspirin 650 mg every 4-6 hours with either milk or food. He states this pain was a #7 and brought him to tears. This time he was also having fever and chills and sweats during the night that soaked sheets. Because of the sweats he has not been able to sleep. On Saturday he was eating okay but by Saturday he had decreased appetite. He came in to [facility] emergency center for evaluation. He was given morphine in the ER which he states he almost passed out and felt very woozy from it. He was given liter of IV fluids and an EKG was done that showed a normal sinus rhythm without acute ST changes. CAT scan of the abdomen and pelvis with contrast revealed nonobstructive left renal calculus, large renal parapelvic cyst. Normal appendix. Mild splenomegaly. He has had a temperature maximum 101.4, white count of 15.1, platelet count 80, AST 158 and ALT 186. Alkaline phosphatase 71. Urinalysis was negative for infection but there was small amount of blood. Renal function was BUN 18 and creatinine 0.6. Patient was started in the ER on acyclovir, Rocephin and vancomycin and admitted to the [facility] floor and continued on the same. Now the rash is also spread to his entire chest abdomen active but ox and a few lesions on his arms and right foot. He is complaining of pain in his mouth but no lesions are noted. Patient has never had chickenpox or the vaccine. 06/24/2018 patient has worsened today. he has developed new lesions to his and periorbital edema and swelling Fortunately his vision is intact. He is somewhat miserable but no worse than yesterday He is eating, back and forth to the bathroom and is not in severe pain.he has been seen by dermatology. 06/25/2018 patient has some improvement today. The extensive facial edema has resolved and the periorbital area, right eye is now completely open. He has developed some edema around the face and neck area without dyspnea or stridor. Patient is fatigued continues to feel poorly but feels better than admission. The vesicles of the scalp and forehead are healing as they are on the chest and abdomen. Some are a bit hemorrhagic in nature though. No other new lesions are seen. Some generalized erythema to the skin is improved. 06/26/2018 find the patient to be somewhat improved but he is still very fatigued and relates that he is wiped out from this systemic infection. He is eating much better after his dose of Lasix last night and is denying interim troubles except for his profound malaise. Case has been reviewed with hematology and IVIG will be given tonight. Laboratories confirmed the varicella -zoster diagnosis. Objective - Vital Signs Vital signs: Vital Signs Temp 99.3 F 06/26/18 15:00 Pulse 51 L 06/26/18 15:00 Resp 16 06/26/18 15:00 BP 151/79 06/26/18 15:00 Pulse Ox 99 06/26/18 15:00 Intake & Output 06/26/18 06/26/18 06/27/18 06:59 18:59 06:59 Intake Total 750 1160 Balance 750 1160 Intake: IV 1160 Acyclovir Sodium 1,000 mg 500 In Sodium Chloride 0.9% 250 ml @ 180 mls/hr IVPB Q6H [facility] Rx#:[id number] Lactated Ringers 500 ml @ 160 20 mls/hr IV .Q24H [facility] Rx#:[id number] Vancomycin 1,750 mg In 500 Sodium Chloride 0.9% 500 ml @ 167 mls/hr IVPB Q8HR [facility] Rx#:[id number] Oral 750 Other: Voiding Method Toilet Urinal # Voids 2 1 1 # Bowel Movements 1 - Exam Gen: This is a 57-year-old male. He is sitting up in bed and appears to be comfortable. HEENT: Head is atraumatic, normocephalic. has evidence of the extensive vesicular rash in the scalp and forehead and now face, the significant facial edema has now completely resolved, the. Orbital edema has resolved eyes are wide open. Still has some significant edema to the tissue of the neck area. The lower extremity edema is improved after the last Lasix dose. NECK: Supple. No JVD. No lymphadenopathy. No thyromegaly. LUNGS: Clear to auscultation. No wheezes or rhonchi. No intercostal retractions. HEART: Regular rate and rhythm. No murmur. ABDOMEN: Soft. Bowel sounds are present. No masses. No tenderness. EXTREMITIES: No pedal edema. No calf tenderness. Dorsalis pedis +2 bilaterally. SKIN: There is a dense vesicular rash which has worsened, the vesicles are in different phases which is highly consistent with primary varicella-zoster infection, new areas have developed around the eyes, but vision is clear and has been evaluated by ophthalmology. NEUROLOGICAL: Patient is awake, alert and oriented x3. - Labs CBC & Chem 7: 06/26/18 08:09 06/26/18 08:09 Labs: Abnormal Lab Results - Last 24 Hours (Table) 06/24/18 06/25/18 06/26/18 Range/Units 10:13 05:19 08:09 WBC (3.8-10.6) k/uL RBC (4.30-5.90) m/uL Hgb (13.0-17.5) gm/dL Plt Count (150-450) k/uL Lymphocytes # (Manual) (1.0-4.8) k/uL Calcium 7.7 L (8.4-10.2) mg/dL AST 115 H (17-59) U/L ALT 193 H (21-72) U/L Total Protein 5.1 L (6.3-8.2) g/dL Albumin 2.9 L (3.5-5.0) g/dL IgG 349.0 L (700.0-1600.0) mg/dL IgA <25.5 L (60.0-350.0) mg/dL IgM <16.9 L (40.0-280.0) mg/dL Viral Test See Below H 06/26/18 Range/Units 08:09 WBC 11.1 H (3.8-10.6) k/uL RBC 4.26 L (4.30-5.90) m/uL Hgb 12.9 L (13.0-17.5) gm/dL Plt Count 60 L (150-450) k/uL Lymphocytes # (Manual) 8.55 H (1.0-4.8) k/uL Calcium (8.4-10.2) mg/dL AST (17-59) U/L ALT (21-72) U/L Total Protein (6.3-8.2) g/dL Albumin (3.5-5.0) g/dL IgG (700.0-1600.0) mg/dL IgA (60.0-350.0) mg/dL IgM (40.0-280.0) mg/dL Viral Test Microbiology - Last 24 Hours (Table) 06/23/18 23:21 Blood Culture Gram Stain - Final Blood Blood Culture - Final Staph hominis sub sp. hominis 06/25/18 05:19 Blood Culture - Preliminary Blood No Growth after 24 hours 06/25/18 05:28 Blood Culture - Preliminary Blood No Growth after 24 hours Laboratory Results WBC 11.1 k/uL (3.8-10.6) H 06/26/18 08:09 RBC 4.26 m/uL (4.30-5.90) L 06/26/18 08:09 Hgb 12.9 gm/dL (13.0-17.5) L 06/26/18 08:09 Hct 41.1 % (39.0-53.0) 06/26/18 08:09 MCV 96.4 fL (80.0-100.0) 06/26/18 08:09 MCH 30.1 pg (25.0-35.0) 06/26/18 08:09 MCHC 31.3 g/dL (31.0-37.0) 06/26/18 08:09 RDW 14.4 % (11.5-15.5) 06/26/18 08:09 Plt Count 60 k/uL (150-450) L 06/26/18 08:09 Neutrophils % (Manual) 15 % 06/26/18 08:09 Band Neutrophils % 13 % 06/22/18 23:21 Lymphocytes % (Manual) 77 % 06/26/18 08:09 Monocytes % (Manual) 8 % 06/26/18 08:09 Eosinophils % (Manual) 1 % 06/25/18 05:19 Other Cells % % 06/23/18 13:26 Neutrophils # (Manual) 1.67 k/uL (1.3-7.7) 06/26/18 08:09 Lymphocytes # (Manual) 8.55 k/uL (1.0-4.8) H 06/26/18 08:09 Monocytes # (Manual) 0.89 k/uL (0-1.0) 06/26/18 08:09 Eosinophils # (Manual) 0.09 k/uL (0-0.7) 06/25/18 05:19 Nucleated RBCs 0 /100 WBC (0-0) 06/26/18 08:09 Differential Comment 06/26/18 08:09 Manual Slide Review Performed 06/26/18 08:09 Poikilocytosis (manual Present 06/26/18 08:09 PT 10.2 sec (9.0-12.0) 06/24/18 16:02 INR 1.0 (<1.2) 06/24/18 16:02 Sodium 140 mmol/L (137-145) 06/26/18 08:09 Potassium 4.1 mmol/L (3.5-5.1) 06/26/18 08:09 Chloride 107 mmol/L (98-107) 06/26/18 08:09 Carbon Dioxide 27 mmol/L (22-30) 06/26/18 08:09 Anion Gap 6 mmol/L 06/26/18 08:09 BUN 13 mg/dL (9-20) 06/26/18 08:09 Creatinine 0.84 mg/dL (0.66-1.25) 06/26/18 08:09 Est GFR (CKD-EPI)AfAm >90 (>60 ml/min/1.73 sqM) 06/26/18 08:09 Est GFR (CKD-EPI)NonAf >90 (>60 ml/min/1.73 sqM) 06/26/18 08:09 Glucose 87 mg/dL (74-99) 06/26/18 08:09 Calcium 7.7 mg/dL (8.4-10.2) L 06/26/18 08:09 Total Bilirubin 1.1 mg/dL (0.2-1.3) 06/26/18 08:09 AST 115 U/L (17-59) H 06/26/18 08:09 ALT 193 U/L (21-72) H 06/26/18 08:09 Alkaline Phosphatase 71 U/L (38-126) 06/26/18 08:09 C-Reactive Protein 21.1 mg/L (<10.0) H 06/22/18 23:21 Total Protein 5.1 g/dL (6.3-8.2) L 06/26/18 08:09 Albumin 2.9 g/dL (3.5-5.0) L 06/26/18 08:09 Amylase 47 U/L (30-110) 06/22/18 23:21 Lipase 68 U/L (23-300) 06/22/18 23:21 Urine Color Yellow 06/22/18 23:42 Urine Appearance Clear (Clear) 06/22/18 23:42 Urine pH 5.0 (5.0-8.0) 06/22/18 23:42 Ur Specific [place] 1.029 (1.001-1.035) 06/22/18 23:42 Urine Protein Trace (Negative) H 06/22/18 23:42 Urine Glucose (UA) Negative (Negative) 06/22/18 23:42 Urine Ketones Negative (Negative) 06/22/18 23:42 Urine Blood Small (Negative) H 06/22/18 23:42 Urine Nitrite Negative (Negative) 06/22/18 23:42 Urine Bilirubin Negative (Negative) 06/22/18 23:42 Urine Urobilinogen <2.0 mg/dL (<2.0) 06/22/18 23:42 Ur Leukocyte Esterase Negative (Negative) 06/22/18 23:42 Urine RBC 5 /hpf (0-5) 06/22/18 23:42 Urine WBC 2 /hpf (0-5) 06/22/18 23:42 Ur Squamous Epith Cells <1 /hpf (0-4) 06/22/18 23:42 Urine Bacteria Rare /hpf (None) H 06/22/18 23:42 Urine Mucus Few /hpf (None) H 06/22/18 23:42 Vancomycin Trough 5.6 ug/mL 06/25/18 05:19 IgG 349.0 mg/dL (700.0-1600.0) L 06/25/18 05:19 IgA <25.5 mg/dL (60.0-350.0) L 06/25/18 05:19 IgM <16.9 mg/dL (40.0-280.0) L 06/25/18 05:19 Desmoglein 1 Antibody 0.64 U (<14.0) 06/23/18 13:26 Desmoglein 3 Antibody 8.90 U (<9.0) 06/23/18 13:26 T-Suppressor Cells 165 cell/ul (190-832) L 06/23/18 13:26 Total T Cells 319 cell/ul (704-2138) L 06/23/18 13:26 Natural Killer Cells 30 cell/ul (60-500) L 06/23/18 13:26 % CD3 Cells 4 % (55-86) L 06/23/18 13:26 % CD4 [place] 2 % (35-66) L 06/23/18 13:26 Absolute CD4 [place] 156 cell/ul (443-1471) L 06/23/18 13:26 CD4/CD8 Ratio 0.9 (1.0-3.7) L 06/23/18 13:26 % CD8 Suppressor 2 % (9-37) L 06/23/18 13:26 % CD16/CD56 Cells <1 % (3-24) L 06/23/18 13:26 % CD19 Cells 94 % (4-25) H 06/23/18 13:26 Total CD19+ B Cells >3000 cell/ul (100-524) H 06/23/18 13:26 Hepatitis A IgM Ab Non-Reactive (Non-Reactive) 06/23/18 13:30 Hep Bs Antigen Non-Reactive (Non-Reactive) 06/23/18 13:30 Hep B Core IgM Ab Non-Reactive (Non-Reactive) 06/23/18 13:30 Hep C IgG Ab Non-Reactive (Non-Reactive) 06/23/18 13:30 VZV IgG Antibody <0.2 AI 06/22/18 23:21 VZV IgG Interpret NEGATIVE (NEGATIVE) 06/22/18 23:21 Virus Source See Below 06/24/18 10:13 Viral Test See Below H 06/24/18 10:13 Virus Analysis Interp See Below 06/24/18 10:13 Microbiology 06/23/18 23:21 Blood Blood Culture Gram Stain - Final 06/23/18 23:21 Blood Blood Culture - Final Staph hominis sub sp. hominis 06/25/18 05:19 Blood Blood Culture - Preliminary No Growth after 24 hours 06/25/18 05:28 Blood Blood Culture - Preliminary No Growth after 24 hours 06/23/18 10:15 Back Gram Stain - Final 06/23/18 10:15 Back Wound Culture - Final 06/22/18 23:21 Blood Blood Culture - Final Assessment and Plan (1) VZV (varicella-zoster virus) infection Narrative/Plan: 57-year-old male with a history of salol relates to the relatively short history of onset of the rash that started on his scalp and then spread to his forehead. 3 days it has become evident on his chest abdomen right foot back. Associated with high-grade fever of over 2 generalized malaise significant chills and sweats the required him to sleep on Towels because he was sweating so considerably. The patient then developed significant abdominal pain after taking aspirin as well as his Medrol Dosepak, and he had received a Depo-Medrol injection. The abdominal pain continued to worsen in this is actually why he sought care in the emergency center. Upon arrival he had high-grade fever and evidence of this extensive rash. There is immunocompromised status and the vesicular nature of the rash is in different phases. Highly consistent with acute varicella-zoster infection, chickenpox. Patient was placed in appropriate airborne precautions and admitted. Intravenous acyclovir is being utilized and maneuvers to control his pain and fever being utilized also. He was receiving some Tylenol and IV Toradol has now been added. Caladryl is added to see if this can help with his itchy rash. The patient is concerned about his who does need some help in the home setting. Apparently some sisters and friends will be helping while he is hospitalized. Outpatient testing of the lesion has been done and this result is pending at this point in time. Serological evaluation for varicella-zoster is also requested. Antimicrobial therapy with vancomycin utilize the short run concerns of potential secondary skin infection especially given his significant level of immunocompromised from his CLL. Rocephin was discontinued. Continue with maneuvers to improve his temperature is hydration and pain we will expect improvement over the next 72 hours. 06/24/2018reveals the patient to have some worsening, He is now developed new Lesions periorbitally with some swelling to the right eye,but vision is intact as per ophthalmology. The Varicella IgG level is negative indicating no immunity to chickenpox, making it the most likley diagnosis at this time. Increase acyclovir to Q6 hours, since is having difficulties with the infusion instead of increasing each dose. Midline requested. Positive blood cultures for gram-positive cocci have been isolated. Continue vancomycin therapy. Follow up blood cultures requested in the morning. Patient aware that he is very ill. 06/25/2018 the patient's viral testing has confirmed varicella-zoster. Blood culture could potentially be a coagulase-negative staph and await further data. Follow-up blood cultures have been requested. Input from hematology oncology has occurred due to his underlying CLL. They relate he has a known low IgG level and consequently IVIG has been ordered by hematology. Patient does seem to be showing some improvement with the intravenous acyclovir and the dose was increased in different IV access has been obtained to hopefully improve his level of discomfort. 06/26/2018 Mari the patient be doing better this evening. Varicella-zoster rash starting to crust, once the rash is completely crusted he should no longer be in infectious. The case has been discussed with oncology and IVIG will be given tonight. We'll follow that with a dose of Lasix to help with his edema. The blood culture shows contamination and will not lead to long-term IV antibiotic therapy at discharge. Current Visit: Yes Status: Acute Code(s): B02.9 - ZOSTER WITHOUT COMPLICATIONS; B01.9 - VARICELLA WITHOUT COMPLICATION SNOMED Code(s): 502564443 (2) History of chronic lymphocytic leukemia Current Visit: Yes Status: Acute Code(s): Z85.6 - PERSONAL HISTORY OF LEUKEMIA SNOMED Code(s): 96003987887604
[2018-06-27] MEDS: ACETAMINOPHEN TAB 325 MG TAB PO PRN (00:03)
[2018-06-27] MEDS ORDERED: methylPREDNISolone SOD SUCCI 125 MG/2 ML VIAL IV STA (00:25)
[2018-06-27] MEDS: diphenhydrAMINE 50 MG/ML 1 ML VIAL IVP SCH ×6 (00:49→18:44)
[2018-06-27] MEDS: LACTATED RINGERS 1,000 ML IV SCH ×2 (00:52→14:44)
[2018-06-27] MEDS: KETOROLAC 30 MG/ML 1 ML VIAL IVP SCH ×3 (02:49→14:44)
[2018-06-27] MEDS: ACYCLOVIR SODIUM 1,000 MG in SODIUM CHLORIDE 0.9% 250 ML IVPB SCH ×4 (04:08→15:56)
[2018-06-27] MEDS: LACTATED RINGERS 500 ML IV SCH (04:09)
[2018-06-27] MEDS: VANCOMYCIN 1,750 MG in SODIUM CHLORIDE 0.9% 500 ML IVPB SCH ×2 (04:10→13:00)
[2018-06-27] MEDS ORDERED: VANCOMYCIN TROUGH DUE 1 EACH MISC MISCELLANE ONE (07:00)
--- NOTE | 2018-06-27 07:38 | PN ---
PROGRESS NOTE DATE OF SERVICE: 06/26/2018 PRESENT COMPLAINT: Diffuse rash. INTERVAL HISTORY: This patient with CLL presented with disseminated herpes zoster infection with secondary infection especially more so on the scalp. The patient's swelling of the face is coming down though still present. The patient's appetite is not good. The patient remains on IV acyclovir, IV Benadryl. The patient's immunoglobulin did come back low and Hematology 3 days. The patient was given IV Lasix last night for fluid overload. REVIEW OF SYSTEMS: Done for constitutional, cardiovascular, GI, pulmonary, dermatologic; relevant findings as above. CURRENT MEDICATIONS: Current medications are reviewed include IV acyclovir 1000 mg q.6, IV Benadryl, IV immunoglobulin, sodium bicarb and vancomycin. PHYSICAL EXAMINATION: On examination, temperature 99.3, pulse 51, respirations 16, blood pressure 151/79 pulse ox 99% on room air. GENERAL APPEARANCE: Sitting up, tired appearing. EYES: Pupils equal. Conjunctivae normal. HENT: Face is a bit swollen, multiple lesions of the scalp with breakdown with some secondary infection. RESPIRATORY: Effort normal. LUNGS: Fair entry. CARDIOVASCULAR: First and second sounds normal. No edema. ABDOMEN: Soft, nontender. Liver and spleen not palpable. PSYCHIATRY: Alert and oriented x3. Mood and affect tired appearing. DERMATOLOGICAL: Diffuse punctate rash on the scalp more prominent red today on the torso. INVESTIGATIONS: White count 11.1, hemoglobin 12.9. Potassium 4.1. Albumin 2.9. AST 115, ALT 193. IgG 349, IgA low at 25.5, IgM low at 16.9. ASSESSMENT: 1. Acute severe disseminated herpes zoster infection in a patient who is severely immunosuppressed from underlying chronic lymphocytic leukemia. 2. 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 3. Acute hepatitis from disseminated herpes zoster virus. 4. Essential hypertension. 5. Chronic lymphocytic leukemia. 6. Left renal calculi, asymptomatic. 7. Secondary skin infection for which patient is getting antibiotics. 8. Thrombocytopenia likely from acute infection. 9. Thrombocytopenia likely from acute infection. 10.Hypoalbuminemia with acute phase reactant. PLAN: The patient did get Lasix last night and IV fluids were cut back. The patient's oral intake is not good; hence will increase the IV fluids. This was discussed with the patient, encouraged to increase his oral intake, will increase the IV fluids. The patient overall is slow to respond, though with some parameters slowly improving. MMODL / IJN: [id number] /
[2018-06-27] MEDS: ENOXAPARIN 40 MG/0.4 ML SYRINGE SQ SCH (07:45)
[2018-06-27] MEDS: SODIUM BICARBONATE TAB 650 MG TAB PO SCH ×3 (07:45→21:31)
[2018-06-27] MEDS: LISINOPRIL 5 MG TAB PO SCH (07:45)
[2018-06-27] MEDS: PANTOPRAZOLE 40 MG TABLET PO SCH ×2 (07:45→15:57)
[2018-06-27 08:30] LABS: Anion Gap 7 mmol/L; Blood Urea Nitrogen 16 mg/dL (9-20); Carbon Dioxide 27 mmol/L (22-30); Chloride 106 mmol/L (98-107); Glucose 161 mg/dL (74-99); Sodium 140 mmol/L (137-145)
[2018-06-27] MEDS: TRIAMCINOLONE ACET 0.1% OINTMENT 15 GM TUBE TOPICAL SCH (09:44)
[2018-06-27] MEDS ORDERED: IMMUNE GLOBULIN (HUMAN-IGG) 30 GM in EMPTY BAG 1 BAG IV ONE (18:00)
[2018-06-27] MEDS: methylPREDNISolone SOD SUCCI 40 MG/ML 1 ML VIAL IV SCH (18:43)
[2018-06-27] MEDS: FAMOTIDINE 20 MG/2 ML VIAL IV SCH (18:43)
--- NOTE | 2018-06-27 20:33 | P.PN ---
Subjective Progress Note Date: 06/27/18 Principal diagnosis: Rash and Bacteremia Rash persists, Blood cultures positive Igg decreased Status Post Gammagard 30grams daily 1 of 3 Largest complaints are the extreme malaise and fatigue. He received first dose IVIG last night, he apparently had hypersensitive reaction during infusion. COntinued IVIG will monitor closely and pre-medicate with solumedrol, pepcid and tylenol Objective - Vital Signs Vital signs: Vital Signs Temp 97.6 F 06/27/18 05:30 Pulse 50 L 06/27/18 05:30 Resp 18 06/27/18 05:30 BP 127/86 06/27/18 05:30 Pulse Ox 97 06/27/18 05:30 Intake & Output 06/26/18 06/27/18 06/27/18 18:59 06:59 18:59 Intake Total 1160 195.833 Balance 1160 195.833 Intake: IV 1160 Acyclovir Sodium 1,000 mg 500 In Sodium Chloride 0.9% 250 ml @ 180 mls/hr IVPB Q6H [facility] Rx#:[id number] Lactated Ringers 500 ml @ 160 20 mls/hr IV .Q24H [facility] Rx#:[id number] Vancomycin 1,750 mg In 500 Sodium Chloride 0.9% 500 ml @ 167 mls/hr IVPB Q8HR [facility] Rx#:[id number] Intake, IV Titration 195.833 Amount Immune Globulin (Human- 195.833 IgG) 30 gm In Empty Bag 1 bag @ Per Protocol IV . Q0M [facility] Rx#:[id number] Other: # Voids 1 4 # Bowel Movements 1 - Exam General - NAD, Alert and Oriented x3 Head - NC, NT Eyes - Erythema and Edema, right eye closed shut Neck - Supple, Trachea Midline Lungs CTA Bilateral, no uincreased effort Heart RRR, S1S2 Abdomen Softy, ND, NT Extremities = Mild Generalized edema with diffuse lesions present Skin - Dry, Scaley crusted and non crusted lesions present from head to bilateral arms, posterior and anterior thorax. Rash appears to be scabbing over in most areas and shows mild improvement - Labs CBC & Chem 7: 06/26/18 08:09 06/27/18 07:24 Labs: Abnormal Lab Results - Last 24 Hours (Table) 06/25/18 06/27/18 Range/Units 05:19 07:24 Glucose 161 H (74-99) mg/dL Calcium 8.0 L (8.4-10.2) mg/dL IgG 349.0 L (700.0-1600.0) mg/dL IgA <25.5 L (60.0-350.0) mg/dL IgM <16.9 L (40.0-280.0) mg/dL Microbiology - Last 24 Hours (Table) 06/25/18 05:19 Blood Culture - Preliminary Blood No Growth after 48 hours 06/25/18 05:28 Blood Culture - Preliminary Blood No Growth after 48 hours 06/23/18 23:21 Blood Culture Gram Stain - Final Blood Blood Culture - Final Staph hominis sub sp. hominis Assessment and Plan Plan: Assessment and Recommendations: 1. Chronic Lymphocytis Leukemia - Has been on Observation since 2006 - WBC appears to be maintained at his baseline between 10-15, Today 11.1 - Immunoglobulins decreased, 30grams IVIG (Gammagard) ordered daily x3 doses - Status post 1 of 3, hypersensistive reaction, premedicate prior to further infusions 2. Thrombocytopenia - Mildly below his baseline 90-110 - No CBC today but will need to monitor closely as this may worsen from acute infection - Monitor closely and hold anticoagulation ifless than 50K - CBC Daily x3 3. Disseminated Shingles affecting Right Eye - Per Infectious Disease - Continue on Acyclovir and precautions maintained. - Biopsy proven 4. Liver Transiminitis - ?Medications - Hep Panel Negative - CT scan failed to show underlying etiology - Recheck CBC and CMP in am
--- NOTE | 2018-06-27 23:23 | P.PN ---
Progress Note - Text Progress Note Date: 06/27/18 Date of service-06/27/2018 Presenting complaint: Rash Interval history: This very pleasant patient with CLL presented with disseminated herpes zoster infection with the possibly secondary infection primarily affecting the scalp. Patient is getting IV acyclovir. Dose of Benadryl was cut back yesterday. Patient was started on IV immunoglobulin yesterday. Had a hypersensitivity reaction. Was treated with IV Famg-Yajoph-Lgcktwje-Tylenol. And tolerated the dose. Appetite is much better. Swelling is going down overall. Fevers have been down. Lesions on the skin that his torso are more localized. With no breakdown. Review of systems: Was done for constitutional, cardiovascular, GI, pulmonary. Dermatological relevant finding as above Current medications are reviewed that included: IV acyclovir, calamine lotion, IV Benadryl, immunoglobulin 30 g daily, IV Solu- Medrol, vancomycin, On examination: VITAL SIGNS: 97.8, 50, 20, 1:30/74, 98% room air GENERAL APPEARANCE: Laying in bed, awake. HEENT: Some swelling of the face. Which is actually improving, I'll call [place] breakdown lesions on the scalp EYES: Pupils equal. Conjunctiva normal. NECK: JVD not raised. Mass not palpable. RESPIRATORY: Respiratory effort normal. Lungs clear to auscultation. CARDIOVASCULAR: First and second sounds normal. No edema. ABDOMEN: Soft. Liver and spleen not palpable. No tenderness. No mass palpable. PSYCHIATRY: Alert and oriented x3. Mood and affect normal. DERMATOLOGICAL: Lesions on the torso remain the same. No breakdown. More so on the extremities Investigations: White count 11.1, hemoglobin 12.9, Potassium 4.0, BUN and creatinine normal, Assessment: -Acute severe disseminated herpes zoster infection in a patient immunosuppressed from underlying CLL, responding slowly -Hypogammaglobinemia now getting immunoglobulin infusion -Hypersensitivity reaction to hypogammaglobinemia, acute -Acute hepatitis from disseminated herpes zoster virus -Essential hypertension next to make lymphocytic leukemia in remission -Left renal stone symptomatically -Secondary skin infection of the scalp. With patient is on antibiotics -Thrombocytopenia likely from acute infection -Hypoalbuminemia as an acute phase reactant -Acute fluid overload responded well to IV Lasix Plan: Continue with IV acyclovir, IV middle globulins, IV started steroids, IV Benadryl. Care was discussed with the patient.
[2018-06-28] MEDS: VANCOMYCIN 1,750 MG in SODIUM CHLORIDE 0.9% 500 ML IVPB SCH ×4 (00:09→16:02)
[2018-06-28] MEDS: diphenhydrAMINE 50 MG/ML 1 ML VIAL IVP SCH ×5 (00:15→18:10)
[2018-06-28] MEDS: TRIAMCINOLONE ACET 0.1% OINTMENT 15 GM TUBE TOPICAL SCH ×2 (00:17→09:16)
[2018-06-28] MEDS: ACYCLOVIR SODIUM 1,000 MG in SODIUM CHLORIDE 0.9% 250 ML IVPB SCH ×5 (02:51→21:41)
[2018-06-28] MEDS: LACTATED RINGERS 1,000 ML IV SCH ×2 (06:34→18:53)
[2018-06-28 08:08] LABS: HCT 35.5 % (39.0-53.0); HGB 12.2 gm/dL (13.0-17.5); MCH 31.8 pg (25.0-35.0); MCHC 34.3 g/dL (31.0-37.0); MCV 92.9 fL (80.0-100.0); Mean Platelet Volume 8.7; RBC 3.82 m/uL (4.30-5.90); RDW 14.1 % (11.5-15.5); WBC 14.3 k/uL (3.8-10.6)
[2018-06-28 08:18] LABS: Platelet Count 101 k/uL (150-450)
[2018-06-28 08:23] LABS: ALT 168 U/L (21-72); AST 83 U/L (17-59); Albumin 2.8 g/dL (3.5-5.0); Alkaline Phosphatase 72 U/L (38-126); Anion Gap 6 mmol/L; Blood Urea Nitrogen 16 mg/dL (9-20); Carbon Dioxide 25 mmol/L (22-30); Chloride 109 mmol/L (98-107); Glucose 132 mg/dL (74-99); Potassium 4.1 mmol/L (3.5-5.1); Sodium 140 mmol/L (137-145); Total Bilirubin 0.8 mg/dL (0.2-1.3); Total Protein 5.7 g/dL (6.3-8.2)
[2018-06-28] MEDS ORDERED: methylPREDNISolone SOD SUCCI 40 MG/ML 1 ML VIAL IV SCH (09:00)
[2018-06-28] MEDS: ENOXAPARIN 40 MG/0.4 ML SYRINGE SQ SCH (09:12)
[2018-06-28] MEDS: SODIUM BICARBONATE TAB 650 MG TAB PO SCH ×3 (09:12→21:42)
[2018-06-28] MEDS: PANTOPRAZOLE 40 MG TABLET PO SCH ×2 (09:12→19:07)
[2018-06-28] MEDS: LISINOPRIL 5 MG TAB PO SCH (10:14)
[2018-06-28 10:35] LABS: Lymphocytes # (M) 9.72 k/uL (1.0-4.8); Monocytes # (M) 0.14 k/uL (0-1.0); Neutrophils # (M) 4.43 k/uL (1.3-7.7); Neutrophils % (M) 31 %; Nucleated Red Blood Cells 0 /100 WBC (0-0); Total Cells Counted 100
[2018-06-28 10:36] LABS: Poikilocytosis (M) Present
[2018-06-28] MEDS: NYSTATIN 100,000 UNIT/ML SUSP 500,000 UNIT/5 ML CUP PO SCH ×3 (16:02→21:42)
[2018-06-28] MEDS: ACETAMINOPHEN TAB 325 MG TAB PO PRN (16:27)
--- NOTE | 2018-06-28 16:56 | P.PN ---
Progress Note - Text Progress Note Date: 06/28/18 Presenting complaint: Rash Interval history: This very pleasant patient with CLL presented with disseminated herpes zoster infection with the possibly secondary infection primarily affecting the scalp. Patient is getting IV acyclovir. Also getting IV immunoglobulin. Today-feeling a bit better. Tolerating a diet. Had a bowel movement. Swelling is gone down. Due for more IV immunoglobulin today. Breathing is stable. Lesions on the scalp is starting to heal. No further further increase in lesions. Review of systems: Was done for constitutional, cardiovascular, GI, pulmonary. Dermatological relevant finding as above Current medications are reviewed that included: IV acyclovir, calamine lotion, IV Benadryl, immunoglobulin 30 g daily, IV Solu- Medrol, vancomycin, On examination: VITAL SIGNS: 98.3, 50, 24, 148/89, 98% room air GENERAL APPEARANCE: Laying in bed, awake. HEENT: Some swelling of the face. Which is actually improving, lesions on the scalp are healing EYES: Pupils equal. Conjunctiva normal. NECK: JVD not raised. Mass not palpable. RESPIRATORY: Respiratory effort normal. Lungs clear to auscultation. CARDIOVASCULAR: First and second sounds normal. No edema. ABDOMEN: Soft. Liver and spleen not palpable. No tenderness. No mass palpable. PSYCHIATRY: Alert and oriented x3. Mood and affect normal. DERMATOLOGICAL: Lesions on the torso remain the same. No breakdown. More so on the extremities Investigations: White count 14.3, myoglobin 12.2, platelets 101 Potassium 4.1, AST 83, AST 168 Assessment: -Acute severe disseminated herpes zoster infection in a patient immunosuppressed from underlying CLL, responding slowly -Hypogammaglobinemia now getting immunoglobulin infusion -Hypersensitivity reaction to hypogammaglobinemia, acute -Acute hepatitis from disseminated herpes zoster virus, LFTs coming down -Essential hypertension -Chronic lymphocytic leukemia in remission -Left renal stone symptomatically -Secondary skin infection of the scalp. With patient is on antibiotics -Thrombocytopenia likely from acute infection, started to improve -Hypoalbuminemia as an acute phase reactant -Acute fluid overload responded well to IV Lasix Plan: Patient due to get immunoglobulin today. Continue with IV acyclovir, IV steroid , IV Benadryl. Care was discussed with the patient. CORRINE triamcinolone
--- NOTE | 2018-06-28 17:50 | P.PN ---
Subjective Progress Note Date: 06/28/18 Principal diagnosis: Rash and Bacteremia Patient seen and examined, he is feeling a little better today. He is starting to move around out of bed more to regain strength. lesions are continuing to scab over. He tolerarted IVIG last night. Objective - Vital Signs Vital signs: Vital Signs Temp 98.1 F 06/28/18 15:00 Pulse 52 L 06/28/18 15:00 Resp 20 06/28/18 15:00 BP 151/79 06/28/18 15:00 Pulse Ox 97 06/28/18 15:00 Intake & Output 06/27/18 06/28/18 06/28/18 18:59 06:59 18:59 Intake Total 1110 262.95 1070 Balance 1110 262.95 1070 Intake: IV 910 Acyclovir Sodium 1,000 mg 250 In Sodium Chloride 0.9% 250 ml @ 180 mls/hr IVPB Q6H [facility] Rx#:[id number] Lactated Ringers 500 ml @ 160 20 mls/hr IV .Q24H [facility] Rx#:[id number] Vancomycin 1,750 mg In 500 Sodium Chloride 0.9% 500 ml @ 167 mls/hr IVPB Q8HR [facility] Rx#:[id number] Intake, IV Titration 262.95 750 Amount Acyclovir Sodium 1,000 mg 250 In Sodium Chloride 0.9% 250 ml @ 180 mls/hr IVPB Q6H [facility] Rx#:[id number] Immune Globulin (Human- 262.95 IgG) 30 gm In Empty Bag 1 bag @ Per Protocol IV . Q0M [facility] Rx#:[id number] Vancomycin 1,750 mg In 500 Sodium Chloride 0.9% 500 ml @ 167 mls/hr IVPB Q8H [facility] Rx#:[id number] Oral 200 320 Other: Voiding Method Toilet Toilet Urinal Urinal # Voids 2 2 # Bowel Movements 1 - Exam General - NAD, Alert and Oriented x3 Head - NC, NT Eyes - Erythema and Edema, right eye closed shut Neck - Supple, Trachea Midline Lungs CTA Bilateral, no uincreased effort Heart RRR, S1S2 Abdomen Softy, ND, NT Extremities = Mild Generalized edema with diffuse lesions present Skin - Dry, Scaley crusted and non crusted lesions present from head to bilateral arms, posterior and anterior thorax. Rash appears to be scabbing over in most areas and shows mild improvement - Labs CBC & Chem 7: 06/28/18 07:32 06/28/18 07:32 Labs: Abnormal Lab Results - Last 24 Hours (Table) 06/28/18 06/28/18 Range/Units 07:32 07:32 WBC 14.3 H (3.8-10.6) k/uL RBC 3.82 L (4.30-5.90) m/uL Hgb 12.2 L (13.0-17.5) gm/dL Hct 35.5 L (39.0-53.0) % Plt Count 101 L D (150-450) k/uL Lymphocytes # (Manual) 9.72 H (1.0-4.8) k/uL Chloride 109 H (98-107) mmol/L Glucose 132 H (74-99) mg/dL Calcium 8.0 L (8.4-10.2) mg/dL AST 83 H (17-59) U/L ALT 168 H (21-72) U/L Total Protein 5.7 L (6.3-8.2) g/dL Albumin 2.8 L (3.5-5.0) g/dL Microbiology - Last 24 Hours (Table) 06/25/18 05:19 Blood Culture - Preliminary Blood No Growth after 72 hours 06/25/18 05:28 Blood Culture - Preliminary Blood No Growth after 72 hours Assessment and Plan Plan: Assessment and Recommendations: 1. Chronic Lymphocytis Leukemia - Has been on Observation since 2006 - WBC appears to be maintained at his baseline between 10-15, Today 11.1 - Immunoglobulins decreased, 30grams IVIG (Gammagard) ordered daily x3 doses - Status post 1 of 3, hypersensistive reaction, premedicate prior to further infusions 2. Thrombocytopenia - Mildly below his baseline 90-110 - No CBC today but will need to monitor closely as this may worsen from acute infection - Monitor closely and hold anticoagulation ifless than 50K - CBC Daily x3 3. Disseminated Shingles affecting Right Eye - Per Infectious Disease - Continue on Acyclovir and precautions maintained. - Biopsy proven 4. Liver Transiminitis - ?Medications - Hep Panel Negative - CT scan failed to show underlying etiology - Recheck CBC and CMP in am 5. Oral THrush: Added Nystatin Swish and Spit 6. Acute illness Myopathy, may benefit from physical therapy consult to increase strength and stamina
[2018-06-28] MEDS ORDERED: diphenhydrAMINE 50 MG/ML 1 ML VIAL IVP SCH (18:00)
[2018-06-28] MEDS ORDERED: IMMUNE GLOBULIN (HUMAN-IGG) 30 GM in EMPTY BAG 1 BAG IV ONE (18:00)
[2018-06-28] MEDS: methylPREDNISolone SOD SUCCI 40 MG/ML 1 ML VIAL IV SCH (18:10)
[2018-06-28] MEDS: FAMOTIDINE 20 MG/2 ML VIAL IV SCH (18:10)
[2018-06-28] MEDS ORDERED: VANCOMYCIN TROUGH DUE 1 EACH MISC MISCELLANE ONE (23:00)
[2018-06-29] MEDS: diphenhydrAMINE 50 MG/ML 1 ML VIAL IVP SCH ×4 (00:48→17:41)
[2018-06-29] MEDS: ACYCLOVIR SODIUM 1,000 MG in SODIUM CHLORIDE 0.9% 250 ML IVPB SCH ×4 (04:07→21:07)
[2018-06-29] MEDS: ACETAMINOPHEN TAB 325 MG TAB PO PRN ×2 (04:09→21:07)
[2018-06-29] MEDS: VANCOMYCIN 1,250 MG in SODIUM CHLORIDE 0.9% 250 ML IVPB SCH ×3 (06:04→21:07)
[2018-06-29] MEDS: LACTATED RINGERS 1,000 ML IV SCH ×2 (06:05→18:33)
[2018-06-29] MEDS: SODIUM BICARBONATE TAB 650 MG TAB PO SCH ×3 (07:36→21:07)
[2018-06-29] MEDS: PANTOPRAZOLE 40 MG TABLET PO SCH ×2 (07:36→17:41)
[2018-06-29] MEDS: FAMOTIDINE 20 MG/2 ML VIAL IV SCH (07:36)
[2018-06-29] MEDS: ENOXAPARIN 40 MG/0.4 ML SYRINGE SQ SCH (07:36)
[2018-06-29] MEDS: methylPREDNISolone SOD SUCCI 40 MG/ML 1 ML VIAL IV SCH (07:37)
[2018-06-29] MEDS: NYSTATIN 100,000 UNIT/ML SUSP 500,000 UNIT/5 ML CUP PO SCH ×4 (07:38→21:07)
[2018-06-29 08:15] LABS: HCT 34.6 % (39.0-53.0); HGB 11.6 gm/dL (13.0-17.5); MCH 31.4 pg (25.0-35.0); MCHC 33.7 g/dL (31.0-37.0); MCV 93.1 fL (80.0-100.0); Mean Platelet Volume 8.7; Platelet Count 110 k/uL (150-450); RBC 3.71 m/uL (4.30-5.90); RDW 14.2 % (11.5-15.5)
[2018-06-29 08:35] LABS: Lymphocytes # (M) 13.05 k/uL (1.0-4.8); Monocytes # (M) 0.45 k/uL (0-1.0); Neutrophils % (M) 10 %; Nucleated Red Blood Cells 0 /100 WBC (0-0); Total Cells Counted 100
[2018-06-29 08:42] LABS: Anion Gap 6 mmol/L; Blood Urea Nitrogen 14 mg/dL (9-20); Carbon Dioxide 25 mmol/L (22-30); Chloride 109 mmol/L (98-107); Glucose 99 mg/dL (74-99); Potassium 4.1 mmol/L (3.5-5.1); Sodium 140 mmol/L (137-145)
[2018-06-29] MEDS: LISINOPRIL 5 MG TAB PO SCH (10:11)
[2018-06-29 14:06] VITALS: BMI 34.7
--- NOTE | 2018-06-29 22:37 | P.PN ---
Progress Note - Text Progress Note Date: 06/29/18 Presenting complaint: Rash Interval history: This very pleasant patient with CLL presented with disseminated herpes zoster infection with the possibly secondary infection primarily affecting the scalp. Patient is getting IV acyclovir. Also getting IV immunoglobulin. Today-lesions continued to improve. Now started to dry out. Feels very weak and tired. Did tolerate some diet. Did get 3 courses of immunoglobulin. Review of systems: Was done for constitutional, cardiovascular, GI, pulmonary. Dermatological relevant finding as above Current medications are reviewed that included: IV acyclovir, calamine lotion, IV Benadryl, immunoglobulin 30 g daily-completed , IV Solu-Medrol, vancomycin, On examination: VITAL SIGNS: 97.2, 49, 18, 144/79, 98% room air GENERAL APPEARANCE: Laying in bed, awake. Tired appearing HEENT: Some swelling of the face. Which is actually improving, lesions on the scalp are healing EYES: Pupils equal. Conjunctiva normal. NECK: JVD not raised. Mass not palpable. RESPIRATORY: Respiratory effort normal. Lungs clear to auscultation. CARDIOVASCULAR: First and second sounds normal. No edema. ABDOMEN: Soft. Liver and spleen not palpable. No tenderness. No mass palpable. PSYCHIATRY: Alert and oriented x3. Mood and affect normal. DERMATOLOGICAL: Lesions on the torso remain the same. No breakdown. More so on the extremities Investigations: White count 15, hemoglobin 11.6, potassium 4.1,. 14 Assessment: -Acute severe disseminated herpes zoster infection in a patient immunosuppressed from underlying CLL, responding slowly -Hypogammaglobinemia now getting immunoglobulin infusion -Hypersensitivity reaction to hypogammaglobinemia, acute -Acute hepatitis from disseminated herpes zoster virus, LFTs coming down -Essential hypertension -Chronic lymphocytic leukemia in remission -Left renal stone symptomatically -Secondary skin infection of the scalp. With patient is on antibiotics -Thrombocytopenia likely from acute infection, started to improve -Hypoalbuminemia as an acute phase reactant -Acute fluid overload responded well to IV Lasix Plan: Patient getting better. We'll switch the IV Solu-Medrol to by mouth prednisone 30 mg. Also switched to by mouth Pepcid. Also switched to by mouth Benadryl. Patient encouraged to be out of bed.
[2018-06-30] MEDS: ACYCLOVIR SODIUM 1,000 MG in SODIUM CHLORIDE 0.9% 250 ML IVPB SCH ×4 (03:33→23:01)
[2018-06-30] MEDS: VANCOMYCIN 1,250 MG in SODIUM CHLORIDE 0.9% 250 ML IVPB SCH ×3 (06:06→23:00)
[2018-06-30] MEDS: ACETAMINOPHEN TAB 325 MG TAB PO PRN ×4 (06:06→23:19)
[2018-06-30 08:10] LABS: ALT 163 U/L (21-72); AST 76 U/L (17-59); Albumin 2.7 g/dL (3.5-5.0); Alkaline Phosphatase 71 U/L (38-126); Anion Gap 7 mmol/L; Blood Urea Nitrogen 13 mg/dL (9-20); Calcium 7.7 mg/dL (8.4-10.2); Carbon Dioxide 24 mmol/L (22-30); Chloride 109 mmol/L (98-107); Glucose 88 mg/dL (74-99); HGB 11.5 gm/dL (13.0-17.5); MCH 31.4 pg (25.0-35.0); MCHC 33.9 g/dL (31.0-37.0); MCV 92.6 fL (80.0-100.0); Mean Platelet Volume 8.2; Platelet Count 118 k/uL (150-450); Potassium 3.6 mmol/L (3.5-5.1); RBC 3.67 m/uL (4.30-5.90); RDW 14.4 % (11.5-15.5); Sodium 140 mmol/L (137-145); Total Bilirubin 0.8 mg/dL (0.2-1.3); Total Protein 5.7 g/dL (6.3-8.2); WBC 16.5 k/uL (3.8-10.6)
[2018-06-30] MEDS: diphenhydrAMINE 25 MG CAP PO SCH ×3 (08:13→23:00)
[2018-06-30] MEDS: predniSONE 20 MG TAB PO SCH (08:14)
[2018-06-30] MEDS: FAMOTIDINE 20 MG TAB PO SCH ×2 (08:14→23:00)
[2018-06-30] MEDS: SODIUM BICARBONATE TAB 650 MG TAB PO SCH ×3 (08:14→23:09)
[2018-06-30] MEDS: NYSTATIN 100,000 UNIT/ML SUSP 500,000 UNIT/5 ML CUP PO SCH ×4 (08:14→23:00)
[2018-06-30] MEDS: ENOXAPARIN 40 MG/0.4 ML SYRINGE SQ SCH (08:14)
[2018-06-30] MEDS: LISINOPRIL 5 MG TAB PO SCH (08:14)
[2018-06-30] MEDS: PANTOPRAZOLE 40 MG TABLET PO SCH ×2 (08:15→16:12)
[2018-06-30] MEDS: LACTATED RINGERS 1,000 ML IV SCH ×2 (08:15→23:01)
[2018-06-30 08:51] LABS: Monocytes # (M) 0.66 k/uL (0-1.0); Myelocytes # (M) 0.33 k/uL (0); Myelocytes % 2 %; Neutrophils # (M) 5.28 k/uL (1.3-7.7); Neutrophils % (M) 32 %; Nucleated Red Blood Cells 0 /100 WBC (0-0); Total Cells Counted 200
--- NOTE | 2018-06-30 22:41 | PN ---
PROGRESS NOTE DATE OF SERVICE: June 30, 2018. PRESENT COMPLAINT: Rash. INTERVAL HISTORY: This pleasant patient who is immunosuppressed with CLL presented with disseminated herpes zoster infection and possibly secondary infection probably affecting the scalp. The scalp lesions are actually getting better. The patient also did receive immunoglobulin 3 doses. Overall getting better. Appetite is improving. Has been up to the bathroom. No further fevers. REVIEW OF SYSTEMS: Done for constitutional, cardiovascular, GI, pulmonary; relevant findings as above. CURRENT MEDICATIONS: Reviewed that include IV acyclovir, p.o. Benadryl, p.o. Pepcid p.o. Protonix, sodium bicarb, IV vancomycin. EXAMINATION: VITAL SIGNS: Temperature 98.7, pulse 49, respiratory 18, blood pressure 147/74, pulse ox 98 percent on room air. GENERAL APPEARANCE: Sitting up, awake. Tired. EYES: Pupils equal. Conjunctivae normal. HEENT some swelling of the face persists. Lesions on the scalp are healing. NECK: JVD not raised. Mass not palpable. RESPIRATORY effort normal. LUNGS are clear. CARDIOVASCULAR: 1st and 2nd sounds normal. No edema. ABDOMEN: Soft, nontender. Liver and spleen not palpable. PSYCHIATRY: Alert and oriented x3. Mood and affect normal. DERMATOLOGICAL: Lesions of the torso actually improving. Started to dry up, more on the scalp also drying up. INVESTIGATIONS: White count 16.5, hemoglobin 11.5, potassium 3.6. AST 76, ALT 163. ASSESSMENT: 1. Acute severe disseminated herpes zoster infection in a patient who is immunosuppressed from underlying chronic lymphocytic leukemia responding well day 8 of IV acyclovir should complete anywhere from 7-10 days. 2. Hypogammaglobinemia has completed 3 days immunoglobulin infusion. 3. Hypersensitivity reaction to hypogammaglobinemia, acute, resolved. 4. Acute hepatitis from disseminated herpes zoster virus infection. LFTs coming down. 5. Essential hypertension. 6. Chronic lymphocytic leukemia. 7. Left renal stones asymptomatic. 8. Secondary skin infection of the scalp for which patient has been on antibiotics. 9. Thrombocytopenia likely acute infection, improving. 10.Hypoalbuminemia as an acute phase reactant. 11.Acute fluid overload. Has responded well to Lasix. PLAN: The patient will need 1 or more 2 days of acyclovir. Clinically doing much better and the course will be completed. We will also DC patient's lactated Ringer's. Patient's prednisone will be slowly scaled back. Care was discussed with the patient. MMODL / IJN: [id number] /
[2018-07-01] MEDS: ACYCLOVIR SODIUM 1,000 MG in SODIUM CHLORIDE 0.9% 250 ML IVPB SCH ×3 (03:04→14:54)
[2018-07-01] MEDS ORDERED: VANCOMYCIN TROUGH DUE 1 EACH MISC MISCELLANE ONE (05:00)
[2018-07-01] MEDS: VANCOMYCIN 1,250 MG in SODIUM CHLORIDE 0.9% 250 ML IVPB SCH (05:37)
[2018-07-01] MEDS: ACETAMINOPHEN TAB 325 MG TAB PO PRN (05:47)
[2018-07-01] MEDS: PANTOPRAZOLE 40 MG TABLET PO SCH (08:00)
[2018-07-01] MEDS: ENOXAPARIN 40 MG/0.4 ML SYRINGE SQ SCH (08:00)
[2018-07-01] MEDS: FAMOTIDINE 20 MG TAB PO SCH (08:00)
[2018-07-01] MEDS: diphenhydrAMINE 25 MG CAP PO SCH ×2 (08:00→14:59)
[2018-07-01] MEDS: LISINOPRIL 5 MG TAB PO SCH (08:00)
[2018-07-01] MEDS: predniSONE 20 MG TAB PO SCH (08:01)
[2018-07-01] MEDS: NYSTATIN 100,000 UNIT/ML SUSP 500,000 UNIT/5 ML CUP PO SCH ×2 (08:01→13:30)
[2018-07-01] MEDS: SODIUM BICARBONATE TAB 650 MG TAB PO SCH ×2 (08:02→14:53)
[2018-07-01 09:00] VITALS: RESP 18
[2018-07-01] MEDS: LACTATED RINGERS 1,000 ML IV SCH (10:51)
[2018-07-01] MEDS ORDERED: GABAPENTIN 100 MG CAP PO STA (14:09)
[2018-07-01 15:17] VITALS: BP 143/89; PULSE 61; TEMP 97.3
[2018-07-01] MEDS ORDERED: VANCOMYCIN 1,250 MG in SODIUM CHLORIDE 0.9% 250 ML IVPB SCH (18:00)
[2018-07-01] MEDS ORDERED: GABAPENTIN 100 MG CAP PO SCH (21:00)
--- NOTE | 2018-07-01 21:35 | P.PN ---
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 Objective - Vital Signs Vital signs: Vital Signs Temp 97.3 F L 07/01/18 15:00 Pulse 61 07/01/18 15:00 Resp 18 07/01/18 15:00 BP 143/89 07/01/18 15:00 Pulse Ox 96 07/01/18 15:00 Intake & Output 07/01/18 07/01/18 07/02/18 06:59 18:59 06:59 Intake Total 240 Balance 240 Intake: Oral 240 Other: Voiding Method Toilet Urinal # Voids 1 2 - Exam General - NAD, Alert and Oriented x3 Head - NC, NT Eyes - Erythema and Edema, right eye closed shut Neck - Supple, Trachea Midline Lungs CTA Bilateral, no uincreased effort Heart RRR, S1S2 Abdomen Softy, ND, NT Extremities = Mild Generalized edema with diffuse lesions present Skin - Dry, Scaley crusted and non crusted lesions present from head to bilateral arms, posterior and anterior thorax. Rash appears to be scabbing over in most areas and shows mild improvement - Labs CBC & Chem 7: 06/30/18 07:14 06/30/18 07:14 Labs: Microbiology - Last 24 Hours (Table) 06/25/18 05:19 Blood Culture - Final Blood No Growth after 144 hours 06/25/18 05:28 Blood Culture - Final Blood No Growth after 144 hours Assessment and Plan Plan: Assessment and Recommendations: 1. Chronic Lymphocytis Leukemia - Has been on Observation since 2006 - WBC appears to be maintained at his baseline between 10-15, Today 11.1 - Immunoglobulins decreased, 30grams IVIG (Gammagard) ordered daily x3 doses - Status post 1 of 3, hypersensistive reaction, premedicate prior to further infusions 2. Thrombocytopenia - Mildly below his baseline 90-110 - No CBC today but will need to monitor closely as this may worsen from acute infection - Monitor closely and hold anticoagulation ifless than 50K - CBC Daily x3 3. Disseminated Shingles affecting Right Eye - Improved - Per Infectious Disease - Continue on Acyclovir and precautions maintained. - Biopsy proven 4. Liver Transiminitis - ?Medications - Hep Panel Negative - CT scan failed to show underlying etiology - Recheck CBC and CMP in am 5. Oral THrush: Added Nystatin Swish and Spit 6. Acute illness Myopathy, may benefit from physical therapy consult to increase strength and stamina 7. Headache - Post Herpetic Neuralgia - Add Gabapentin, will taper up. - Denies dizziness or vision changes. Patient will followup in office 08/05/[address] Cruz Case discussed with Dr. Brady, if headache persists obtain imaging prior to discharge
--- NOTE | 2018-07-03 05:38 | DS ---
DISCHARGE SUMMARY DATE OF ADMISSION: 06/23/2018 DATE OF DISCHARGE: 07/01/2018 FINAL DIAGNOSES: 1. Acute severe disseminated herpes zoster infection in an immunosuppressed patient from underlying chronic lymphocytic leukemia. 2. Hypogammaglobinemia. 3. Hypersensitive reaction to hypogammaglobinemia, acute, resolved. 4. Acute hepatitis from disseminated herpes zoster virus infection. 5. Essential hypertension. 6. Chronic lymphocytic leukemia. 7. Left renal stone asymptomatic. 8. Secondary skin infection of the scalp. 9. Thrombocytopenia likely from acute infection. 10.Hypoalbuminemia as an acute phase reactant. 11.Acute fluid overload responded well to Lasix. HOSPITAL COURSE: This is an extremely pleasant gentleman with a history of CLL, presented with severely disseminated herpes zoster infection, having failed outpatient treatment with p.o. acyclovir, had to be put on a IV acyclovir dose. Because immunoglobulins came back low, the patient did get 3 days of IV gammaglobulin. The patient also has secondary infection of the scalp. CONSULTATION: Dr. Tucker from Oncology; Dr. Espino from Infectious Disease; Dr. Canales from Ophthalmology who ruled out eye involvement. By the time of discharge, patient is greatly improved. The patient is afebrile. White count 16.5, though patient has been on steroids. Hemoglobin 11.5. Appetite was good, up and about. Care was discussed with the patient. Questions were answered. The patient lesions all healed well. The patient is cleared by Dr. Espino and hematology. Discussion and discharge planning more than 35 minutes. DISCHARGE MEDICATIONS: 1. Zestril 5 mg a day. 2. Keflex 500 mg q.8, twenty-one capsules. 3. Pepcid 20 mg b.i.d. 4. Neurontin 100 mg p.o. t.i.d. for headache. 5. Benadryl 25 mg as directed. 6. Prednisone as directed. 7. Valtrex 1000 mg p.o. q.12, fourteen capsules. FOLLOWUP: Follow up with Dr. Canales on 07/09/2018; Dr. Hassan on 07/08/2018; Dr. Cruz in 1 week. Patient to return to work on 07/08/2018 if continues to improve. Discharge planning more than 35 minutes. MMODL / IJN: [id number] /
== END 2018-07-01 17:43 | disposition home or self-care (01) | DRG 866 ==
LOC: EC 22:23 → 4MS4W 06-23 01:57
PROVIDERS: ADMIT Hospitalist; ATTEND Hospitalist
PROC: 3E033WK Introduction of Immunostimulator into Peripheral Vein, Percutaneous (ICD-10-PCS; principal; 2018-06-26)
DX: B02.7 Disseminated zoster (principal); D80.1 Nonfamilial hypogammaglobulinemia; C91.11 Chronic lymphocytic leukemia of B-cell type in remission; B17.9 Acute viral hepatitis, unspecified; B01.9 Varicella without complication; B37.0 Candidal stomatitis; D69.59 Other secondary thrombocytopenia; E87.70 Fluid overload, unspecified; N28.1 Cyst of kidney, acquired; E88.09 Other disorders of plasma-protein metabolism, not elsewhere classified; B02.29 Other postherpetic nervous system involvement; G72.9 Myopathy, unspecified; L08.9 Local infection of the skin and subcutaneous tissue, unspecified; I10 Essential (primary) hypertension; T78.40XA Allergy, unspecified, initial encounter; L29.8 Other pruritus; N20.0 Calculus of kidney; Z78.9 Other specified health status; Z79.899 Other long term (current) drug therapy; Z88.6 Allergy status to analgesic agent; Z88.2 Allergy status to sulfonamides; D89.9 Disorder involving the immune mechanism, unspecified
CPT/HCPCS: 36415; 36569; 71045; 74177; 76937; 80048; 80053; 80074; 80202; 81001; 82150; 82784; 83516; 83690; 85025; 85610; 86140; 86355; 86357; 86359; 86360; 86787; 87040; 87070; 87077; 87186; 87205; 87252; 87498; 87529; 87798; 93005; 96361; 96365; 96375; 99285

== ENCOUNTER → 2020-09-26 | Outpatient (CLI) | payer BC | END | disposition home or self-care (01) | LOC: LABWHC1 15:56 | PROVIDERS: ATTEND Family Medicine | DX: Z20.828 Contact with and (suspected) exposure to other viral communicable diseases (principal) | CPT/HCPCS: U0003; C9803 ==

== ENCOUNTER → 2021-12-08 | Outpatient (CLI) | payer BC ==
[~2021-12-08] MED LIST: TIXAGEVIMAB/CILGAVIMAB (EUA) 300 MG/3 ML COMBO.PKG IM ONE
[2021-12-08 13:00] VITALS: RESP 16; TEMP 97.9
[2021-12-08 13:46] VITALS: BP 127/80; PULSE 79
== END ==
LOC: PROCWHC3 12:43
PROVIDERS: ATTEND Internal Medicine Hematology & Oncology
DX: C91.10 Chronic lymphocytic leukemia of B-cell type not having achieved remission (principal); D69.49 Other primary thrombocytopenia; Z71.3 Dietary counseling and surveillance; Z88.2 Allergy status to sulfonamides; Z88.6 Allergy status to analgesic agent
CPT/HCPCS: Q0220; M0220; 96372

== ENCOUNTER → 2022-08-15 | Outpatient (CLI) | payer BC ==
[~2022-08-15] MED LIST changes: +TIXAGEVIMAB/CILGAVIMAB (EUA) 300 MG/3 ML COMBO.PKG IM NR; -TIXAGEVIMAB/CILGAVIMAB (EUA) 300 MG/3 ML COMBO.PKG IM ONE
[2022-08-15 12:34] VITALS: BP 132/81; PULSE 59; RESP 16; TEMP 97.8
== END ==
LOC: PROCWHC3 12:12
PROVIDERS: ATTEND Internal Medicine Hematology & Oncology
DX: Z23 Encounter for immunization (principal); Z88.2 Allergy status to sulfonamides; Z88.6 Allergy status to analgesic agent
CPT/HCPCS: Q0220; M0220

== ENCOUNTER → 2024-07-01 | Outpatient (CLI) | payer BC ==
[2024-07-01 15:28] LABS: HCT 40.5 % (39.6-50.0); HGB 13.4 g/dL (13.0-17.0); MCH 31.1 pg (27.0-32.0); MCHC 33.1 g/dL (32.0-37.0); Mean Platelet Volume 11.2 FL (9.5-12.2); NRBC Per 100 WBC 0 X 10*3/uL (0.00-0.01); Platelet Count 119 X 10*3/uL (140-440); RBC 4.31 X 10*6/uL (4.40-5.60); RDW 13.9 % (11.5-14.5); WBC 12.08 X 10*3/uL (4.50-10.00)
[2024-07-01 15:53] LABS: BUN/Creat Ratio 18.38 Ratio (12.00-20.00); Blood Urea Nitrogen 14.7 mg/dL (9.0-27.0); Chloride 106 mmol/L (96-109); Glucose 104 mg/dL (70-110); Potassium 4.6 mmol/L (3.5-5.5); Sodium 142 mmol/L (135-145)
[2024-07-01 15:54] LABS: ALT 11 U/L (10-49); AST 20 U/L (14-35); Albumin 4.4 g/dL (3.8-4.9); Albumin/Globulin Ratio 2.44 Ratio (1.60-3.17); Alkaline Phosphatase 63 U/L (41-126); Calcium 9.2 mg/dL (8.7-10.3); Globulin 1.8 g/dL (1.6-3.3); Total Protein 6.2 g/dL (6.2-8.2)
[2024-07-01 17:21] LABS: Basophils # (M) 0.12 X 10*3/uL (0.00-0.10); Eosinophils # (M) 0.12 X 10*3/uL (0.04-0.35); Lymphocytes # (M) 10.87 X 10*3/uL (0.90-5.00); Monocytes # (M) 0.48 X 10*3/uL (0.20-1.00); Neutrophils # (M) 0.48 X 10*3/uL (1.80-7.70); Neutrophils % (M) 4 %; RBC Morphology Normal (Normal); Smudge Cells Present
== END | disposition home or self-care (01) ==
LOC: LABWHC1 08:08
PROVIDERS: ATTEND Internal Medicine Hematology & Oncology
DX: C91.10 Chronic lymphocytic leukemia of B-cell type not having achieved remission (principal); D69.49 Other primary thrombocytopenia
CPT/HCPCS: 36415; 80053; 85025

== ENCOUNTER → 2025-02-11 | Outpatient (CLI) | payer BC ==
--- NOTE | 2025-02-11 13:36 | XR ---
EXAMINATION TYPE: XR lumbar spine 2 or 3V DATE OF EXAM: 02/11/2025 CLINICAL HISTORY: pain TECHNIQUE: Three views of the lumbar spine are submitted. COMPARISON: CT abdomen and pelvis 06/23/2018 FINDINGS: There are 5 lumbar type vertebral bodies identified. The lumbar spine shows satisfactory alignment w ithout evidence of acute fracture or dislocation. Vertebral body heights are within normal limits. Multilevel displacement with endplate sclerosis and anterior osteophytosis. Most pronounced at L1-L2. The overlying soft tissue appears unremarkable. IMPRESSION: 1. No acute fracture or dislocation is seen in the lumbar spine. 2. Mild multilevel degenerative disc disease. [facility], , 02/11/2025 1:34 PM
== END | disposition home or self-care (01) ==
LOC: RADXRMAIN 13:07
PROVIDERS: ATTEND Family Medicine
DX: M51.360 Other intervertebral disc degeneration, lumbar region with discogenic back pain only (principal)
CPT/HCPCS: 72100